=== PATIENT | female | born 1940 | race Two or more races ===

== ENCOUNTER 2017-11-15 12:02 | Emergency (ER) | payer OTHER ==
--- NOTE | 2017-11-15 12:15 | PDOC ---
History of Present Illness - General Chief Complaint: Seizure Stated Complaint: SEIZURE Time Seen by Provider: 11/15/17 12:14 - History of Present Illness Initial Comments: 11/15/17 12:41 The patient is a 77 year old female with a history of HTN, HLD, CAD, CVA, Seizures on Lamictal who presents for evaluation of a possible seizure. The patient is accompanied by family who assist in providing the history. They note that the patient missed her Lamictal dose yesterday evening but was able to take all her medications this morning. The patient was then complaining of a headache and noted pain along the right sided of her body lasting several minutes with the patient being alert the entire time. The patient's family member was concerned that the patient may have had a seizure and was hypertensive prompting their presentation to the ED for further evaluation. The patient is currently complaining of right arm pain with movement, but otherwise denies fevers, chills, headache, SOB, chest pain, nausea, vomiting, abdominal pain, numbness, tingling, weakness, or changes with urination or bowel movements. Past History - Past Medical History Allergies/Adverse Reactions: Allergies Allergy/AdvReac Type Severity Reaction Status Date / Time No Known Allergies Allergy Verified 11/15/17 12:18 Home Medications: Ambulatory Orders Acetaminophen [Tylenol .Extra-Strength -] 100 mg PO Q4H 02/03/16 Amlodipine Besylate 10 mg PO DAILY 02/03/16 Aspirin [ASA -] 81 mg PO DAILY 02/03/16 Cetirizine HCl 10 mg PO DAILY 02/03/16 Gabapentin 100 mg PO DAILY 02/03/16 Lamotrigine [Lamictal] 100 mg PO DAILY 02/03/16 Lisinopril 10 mg PO DAILY 02/03/16 Olopatadine HCl [Patanol] 5 ml OP BID 02/03/16 Oxybutynin Chloride 5 mg PO DAILY 02/03/16 Polyethylene Glycol 3350 [Gavilax] 17 gm PO DAILY 02/03/16 Pravastatin Sodium 10 mg PO DAILY 02/03/16 clonazePAM [Klonopin -] 0.5 mg PO DAILY 02/03/16 Cardiac Disorders: Yes CVA: Yes (X 3 (2014)) Disorders: Yes (frequency) HTN: Yes Hypercholesterolemia: Yes Seizures: Yes (11/2013) - Surgical History Appendectomy: Yes - Immunization History Immunization Up to Date: Yes - Suicide/Smoking/Psychosocial Hx Smoking History: Never smoked Have you smoked in the past 12 months: No Hx Alcohol Use: No Drug/Substance Use Hx: No Substance Use Type: None Hx Substance Use Treatment: No Review of Systems - Review of Systems Comments:: 11/15/17 12:45 Constitutional: No fevers, chills, fatigue, malaise HEENT: No Rhinorrhea, nasal congestion, visual changes Cardiovascular: No chest pain, syncope, palpitations, lightheadedness Respiratory: No Cough, SOB, Hemoptysis, Gastrointestinal: No Abdominal pain, Nausea, Vomiting, Constipation, Diarrhea, Melena Genitourinary: No Dysuria, Frequency, Urgency, Hesitancy, Hematuria, Flank pain Musculoskeletal: Right arm pain. No Myalgia, arthralgia Skin: No rashes, itching, bruising, pallor Neurologic: Headache. No Dizziness, Numbness, Weakness, or Tingling Psychiatric: No Hallucinations. No SI or HI *Physical Exam - Physical Exam Comments: 11/15/17 12:46 General Appearance: Nourished. No Apparent Distress HEENT: EOMI, DIANE. No Pharyngeal Erythema, Tonsillar Exudate, Tonsillar Erythema Neck: No Cervical Lymphadenopathy Respiratory/Chest: Lungs Clear, Normal Breath Sounds. No Crackles, Rales, Rhonchi, Wheezing Cardiovascular: Regular Rhythm, Regular Rate. 2/6 Systolic murmur noted on exam. No Gallops, Rubs Gastrointestinal/Abdominal: Normal Bowel Sounds, Soft. No Guarding, Rebound, Tenderness Musculoskeletal: No CVA Tenderness Extremity: Normal Capillary Refill Integumentary: Normal Color, Dry, Warm Neurologic: forming machine upkeep mechanic II-XII NML intact, Fully Oriented, Alert, Normal Mood/Affect, Normal Response, Motor Strength 5/5. Heart Score/ECG Review #1 ECG reviewed & interpreted by me at: 14:50 (1st Degree AV block) General ECG Interpretation: Sinus Rhythm, Normal Rate, No acute ischemic changes Compared to previous ECG there are: No significant change ED Treatment Course - LABORATORY CBC & Chemistry Diagram: 11/15/17 13:00 11/15/17 13:00 Medical Decision Making - Medical Decision Making 11/15/17 12:46 The patient is a 77 year old female with a history of HTN, HLD, CAD, CVA, Seizures on Lamictal who presents for evaluation of a possible seizure. Differential includes but is not limited to: ACS, Arthritis, CVA, Intracranial process, Infectious, Metabolic derangement. Given the patient's history we will obtain a cbc, cmp, troponin, ekg, chest plain film, and head ct to evaluate further for possible etiologies. The patient appears clinically well on exam. We will continue to monitor and reassess in the meantime. 11/15/17 14:23 CBC, cmp, troponin are unremarkable. Chest plain film is unremarkable as preliminarily read by ER physician. Head CT does not demonstrate any acute pathology as read by our radiologist. We are comfortable discharge the patient home with primary care provider follow up. We discussed the results plan and return precautions with the patient who voiced understanding and is agreeable with the plan. *DC/Admit/Observation/Transfer Diagnosis at time of Disposition: Seizure disorder - Discharge Dispostion Disposition: HOME Condition at time of disposition: Stable Decision to Admit order: No - Referrals - Patient Instructions Printed Discharge Instructions: DI for Seizure Disorder -- Adult Additional Instructions: Please return to the ER if you experience concerning or worsening symptoms including worsening chest pain, headache, or difficulty breathing. Your lab results, head CT, and chest xray were normal here in the ER. It is important that you call to schedule a follow up appointment with your primary care provider within 2-3 days to discuss your ER visit and further management of your symptoms. Por favor, regrese a la kandy de emergencias si experimenta problemas o empeoramiento de los sntomas, incluyendo el empeoramiento del dolor torcico, dolor de kasey o dificultad respiratoria. Los resultados del laboratorio, la tomografa craneal y la radiografa de trax fueron normales aqu en urgencias. Es importante que usted llame para programar quin keri de seguimiento con curiel proveedor de atencin primaria dentro de 2-3 burris para discutir curiel visita de urgencias y la administracin adicional de dana sntomas. Print Language: PORTUGUESE - Post Discharge Activity
[2017-11-15 12:18] VITALS: TEMP 97; BMI 28.3
[2017-11-15 13:11] LABS: BASO % 0.9 % (0-2.0); EOS % 1.9 % (0-4.5); HEMATOCRIT 38.2 % (32.4-45.2); HEMOGLOBIN 12.6 GM/dL (10.7-15.3); MCH 28.5 pg (25.7-33.7); MCHC 32.9 g/dl (32.0-36.0); MEAN CELL VOLUME 86.5 fl (80-96); MEAN PLT VOLUME 7.6 fl (7.5-11.1); MONO % 8.1 % (3.8-10.2); NEUT % 68.1 % (42.8-82.8); PLATELET COUNT 215 K/MM3 (134-434); RBC 4.42 M/mm3 (3.60-5.2); RDW 14.2 % (11.6-15.6); WHITE BLOOD COUNT 4.5 K/mm3 (4.0-10.0)
--- NOTE | 2017-11-15 13:24 | PDOC ---
Attending Attestation - Resident Resident Name: Migeul Cai - ED Attending Attestation I have performed the following: I have examined & evaluated the patient, The case was reviewed & discussed with the resident, I agree w/resident's findings & plan, Exceptions are as noted - HPI HPI: 11/15/17 13:18 The patient is a 77 year old female, with a significant past medical history of CVA(x3 in 2015), hypertension, hyperlipidemia, and seizures on lamictal, who presents to the emergency department with headache since this morning. Per family member, the patient missed her dose of blood pressure and seizure medications last night. Per family member, patient woke up with a headache. Family reports giving the patient 2 Tylenol for her symptoms with mild relief. However, family member states she was concerned that the headache could represent a stroke, so she brought her to the ED for further evaluation. Pt states that her headache has since resolved completely. Patient denies any fever , chills, cough, dizziness, or lightheadedness. She denies any chest pain, shortness of breath, diaphoresis, or palpitations. She denies any abdominal pain , nausea, vomiting, bowel/bladder incontinence. - Physicial Exam PE: 11/15/17 13:21 "GENERAL: Awake, alert, and fully oriented, in no acute distress. HEAD: No signs of trauma EYES: PERRLA, EOMI, sclera anicteric, conjunctiva clear ENT: Auricles normal inspection, hearing grossly normal, nares patent, oropharynx clear without exudates. Moist mucosa NECK: Nontender, no stepoffs, Normal ROM, supple, no lymphadenopathy, JVD, or masses LUNGS: Breath sounds equal, clear to auscultation bilaterally. No wheezes, and no crackles HEART: Regular rate and rhythm, normal S1 and S2, no murmurs, rubs or gallops ABDOMEN: Soft, nontender, normoactive bowel sounds. No guarding, no rebound. No masses EXTREMITIES: Normal range of motion, no edema. No clubbing or cyanosis. No cords, erythema, or tenderness NEUROLOGICAL: Cranial nerves II through XII intact. 5/5 strength and sensation in all extremities, Normal speech, normal gait, normal cerebellar function SKIN: Warm, Dry, normal turgor, no rashes or lesions noted. " - Medical Decision Making 11/15/17 13:21 77 F with headache, now resolved. Pt with no neuro deficits to suggest CVA. No witnessed seizure-like activity or post-ictal period to suggest seizure. - Labs - Head CT 11/15/17 14:[address] wnl, labs unremarkable. Pt reassessed - continues to feel well with no recurrence of headache. Repeat neuro exam at this time still non-focal. Pt is well appearing, with normal vitals. Clinically stable for DC at this time. I discussed the physical exam findings, ancillary test results and final diagnoses with the patient. I answered all of the patient's questions. The patient was satisfied with the care received and felt comfortable with the discharge plan and treatment plan. The patient agrees to follow up with the primary care physician within 24-72 hours. <Vance Sawant - Last Filed: 11/15/17 14:26> - Medical Decision Making 11/15/17 15:17 Documentation prepared by Andrea Castillo, acting as electromedical equipment technician for Vance Sawant MD. <Andrea Castillo - Last Filed: 11/15/17 15:17> ED Treatment Course - LABORATORY CBC & Chemistry Diagram: 11/15/17 13:00 11/15/17 13:00 - ADDITIONAL ORDERS Additional order review: Laboratory Results 11/15/17 13:00 Sodium 134 L Potassium 4.4 Chloride 99 Carbon Dioxide 29 Anion Gap 6 L BUN 15 Creatinine 0.5 L Creat Clearance w eGFR > 60 Random Glucose 101 Calcium 9.1 Total Bilirubin 0.2 D AST 23 ALT 24 Alkaline Phosphatase 86 Creatine Kinase 207 H Creatine Kinase Index 2.3 CK-MB (CK-2) 4.96 H Troponin I < 0.02 Total Protein 6.9 Albumin 3.7 11/15/17 13:00 RBC 4.42 MCV 86.5 MCHC 32.9 RDW 14.2 MPV 7.6 Neutrophils % 68.1 D Lymphocytes % 21.0 D Monocytes % 8.1 Eosinophils % 1.9 Basophils % 0.9 - RADIOLOGY Radiograph Interpretation: 11/15/17 15:16 EXAM: Head CT INTERPRETED BY: Dr. Weaver REVIEWED BY: Dr. Sawant IMPRESSION: See discussion above. No significant interval change or acute intracranial pathology is identified. <Andrea Castillo - Last Filed: 11/15/17 15:17>
[2017-11-15 13:38] LABS: ALBUMIN 3.7 g/dl (3.4-5.0); ANION GAP 6 (8-16); BILIRUBIN,TOTAL 0.2 mg/dL (0.2-1.0); BLOOD UREA NITROGEN 15 mg/dL (7-18); CALCIUM 9.1 mg/dL (8.5-10.1); CHLORIDE 99 mmol/L (98-107); CO2 29 mmol/L (21-32); CREATININE 0.5 mg/dL (0.55-1.02); GLUCOSE,RANDOM 101 mg/dL (74-106); POTASSIUM 4.4 mmol/L (3.5-5.1); SGOT/AST 23 U/L (15-37); SGPT/ALT 24 U/L (12-78); SODIUM 134 mmol/L (136-145); TOT PROT 6.9 g/dl (6.4-8.2)
[2017-11-15 13:40] LABS: ALK PHOS 86 U/L (45-117)
[2017-11-15 15:16] VITALS: BP 124/71; PULSE 75
--- NOTE | 2017-11-16 08:53 | EKG ---
Test Reason : Blood Pressure : / mmHG Vent. Rate : 071 BPM Atrial Rate : 071 BPM P-R Int : 210 ms QRS Dur : 086 ms QT Int : 458 ms P-R-T Axes : 075 -07 003 degrees QTc Int : 497 ms POOR DATA QUALITY, INTERPRETATION MAY BE ADVERSELY AFFECTED SINUS RHYTHM WITH 1ST DEGREE A-V BLOCK NONSPECIFIC T WAVE ABNORMALITY ABNORMAL ECG WHEN COMPARED WITH ECG OF 03-FEB-2016 11:40, NONSPECIFIC T WAVE ABNORMALITY, WORSE IN ANTEROLATERAL LEADS Confirmed by ABEBE HENRY, HUMZA ([id number]) on 11/16/2017 8:53:25 AM Referred By: Confirmed By:HUMZA LOMAS MD
== END 2017-11-15 15:13 | disposition home or self-care (01) ==
LOC: JER 12:02
DX: G40.909 Epilepsy, unspecified, not intractable, without status epilepticus (principal); I10 Essential (primary) hypertension; E78.5 Hyperlipidemia, unspecified; I25.10 Atherosclerotic heart disease of native coronary artery without angina pectoris
CPT/HCPCS: 36415; 70450-TC; 71046-TC-FY; 80053; 82550; 82553; 84484; 85025; 93005; 93010; 99282-25

== ENCOUNTER 2018-11-16 12:44 | Inpatient (IN) | payer OTHER ==
[2018-11-16] MEDS ORDERED: ATROPINE SULFATE 1 MG/10 ML DISP.SYRIN ONE (12:57)
--- NOTE | 2018-11-16 13:04 | PDOC ---
History of Present Illness - General Chief Complaint: Lightheaded Stated Complaint: DIZZINESS Time Seen by Provider: 11/16/18 13:04 History Source: Patient Exam Limitations: No Limitations - History of Present Illness Initial Comments: 11/16/18 13:07 78 year old woman with a history of HTN, HLD, CAD, CVA, Seizures on Lamictal who presents with episode of unsteadiness on her feet occurring at 1030 this morning when she was standing up from a seated position and she began to rotate and speak slowly, the patient continued to do this even after sitting down and the aid called EMS. Aid denies patient shaking or having seizure like symptoms. Per EMS blood sugar in the 130s, HR 35. 3 of atropine given en route with improvment to 40s. The patient's daughter at bedside notes that this has happened before during medication changes The patient just started coreg and discontinued bystolic 2 days ago. She was seen in the ED 1 day ago for break through seizure. Patient provides limited history 2/2 lethargy daughter: Ana [phone] sister: Raeann tPA Exclusion checklist 3-4.5h - Time Elapsed Date last known well: 11/16/18 Time last known well: 10:30 Elaspsed time: Day(s) and 5 Hour(s) and 45 Minutes - Thrombolytic Therapy Candidate Is patient eligible for thrombolytic therapy: Yes - Exclusion Criteria 3-4.5 hr SBP greater than 185 or DBP greater than 110mmHg despite tx: No Recent IC/spinal surgery,head trauma or stroke<3mos.: No Hx IC hemorrhage, IC neoplasm, AV malformation or aneurysm: No Active internal bleeding: No Blding diathesis(low plt ct, inc PTT,INR>1.7 or use of NOAC): No Symptoms suggest subarachnoid hemorrhage: No CT demonstrates multilobar infarct(>1/3 cerebral hemiphere): No Arterial puncture at noncompressible site in previous 7 days: No Blood glucose concentration less than 50mg/dL (2.7mmol/L): No - Relative Exclusion Criteria 3-4.5 hr Life expectancy <1 yr or severe co-morbid illness: No : No Patient/family refused: No Rapid improvement: No Stroke severity too mild: Yes Recent acute MS (w/in previous 3 months): No Seizure at onset with postictal residual neuro impairments: No Major surgery or serious trauma w/in previous 14 days: No Recent GI or hemorrhage (w/in previous 21 days): No - Add'l Relative Exclusion 3-4.5 hr Age > 80: No Hx of both diabetes AND prior ischemic stroke: No Taking an oral anticoagulant regardless of INR: Yes NIHSS >25: No - Ineligibility reason(s) Reasons No tPA given: See reason(s) noted above (Patient showed rapid improvement with transvenous pacing) NIH Stroke Scale - Last Known Well Date/Time & Onset Date Last Known Well: 11/16/18 Time Last Known Well: 10:30 - Initial Evaluation Level of consciousness: Alert Ask patient the month and their age: Answers both correctly Ask patient to open & close eyes; make fist and let go: Obeys both correctly Best gaze (horizontal eye movement): Normal Visual field testing: No visual field loss Facial paresis (Show teeth/raise eyebrows/close eyes tight): Normal symmetrical movement Motor Function: Left Arm: Normal Motor Function: Right Arm: Normal (extends arm 90 (or 45) degrees for 10 seconds without drift Motor Function: Left Leg: Normal (extends leg 30 degrees for 5 seconds without drift) Motor Function: Right Leg: Normal (extends leg 30 degrees for 5 seconds without drift) Limb Ataxia: No ataxia Sensory(Use pinprick test arms,legs,trunk,face/side to side): Normal Best language (Describe picture, name items, read sentences): No Aphasia Dysarthria (read several words): Mild to moderate slurring of words Extinction and Inattention: No abnormality - Total Score NIH Stroke Scale Score: 1 Past History - Past Medical History Allergies/Adverse Reactions: Allergies Allergy/AdvReac Type Severity Reaction Status Date / Time No Known Allergies Allergy Verified 11/15/17 12:18 Home Medications: Ambulatory Orders Acetaminophen [Tylenol .Extra-Strength -] 100 mg PO Q4H 02/03/16 Amlodipine Besylate 10 mg PO DAILY 02/03/16 Aspirin [ASA -] 81 mg PO DAILY 02/03/16 Cetirizine HCl 10 mg PO DAILY 02/03/16 Gabapentin 100 mg PO DAILY 02/03/16 Lamotrigine [Lamictal] 100 mg PO DAILY 02/03/16 Lisinopril 10 mg PO DAILY 02/03/16 Olopatadine HCl [Patanol] 5 ml OP BID 02/03/16 Oxybutynin Chloride 5 mg PO DAILY 02/03/16 Polyethylene Glycol 3350 [Gavilax] 17 gm PO DAILY 02/03/16 Pravastatin Sodium 10 mg PO DAILY 02/03/16 clonazePAM [Klonopin -] 0.5 mg PO DAILY 02/03/16 Cardiac Disorders: Yes CVA: Yes (X 3 (2014)) COPD: No Disorders: Yes (frequency) HTN: Yes Hypercholesterolemia: Yes Seizures: Yes (11/2013) - Surgical History Appendectomy: Yes - Immunization History Immunization Up to Date: Yes - Suicide/Smoking/Psychosocial Hx Smoking History: Unknown if ever smoked Have you smoked in the past 12 months: No Information on smoking cessation initiated: No Hx Alcohol Use: No Drug/Substance Use Hx: No Substance Use Type: None Hx Substance Use Treatment: No Review of Systems - Review of Systems Able to Perform ROS?: No (limited 2/2 lethargy) Comments:: 11/16/18 16:00 + only admits to some lower abdominal pain *Physical Exam - Vital Signs Last Vital Signs Temp Pulse Resp BP Pulse Ox 98.0 F 42 L 16 125/58 L 100 11/16/18 12:50 11/16/18 12:50 11/16/18 12:50 11/16/18 12:50 11/16/18 12:50 - Physical Exam Comments: 11/16/18 16:02 GENERAL: lethargic and dysarthric in speech HEAD: No signs of trauma, normocephalic, atraumatic EYES: PERRLA, EOMI, sclera anicteric, conjunctiva clear ENT: oropharynx clear without exudates. Moist mucosa NECK: Normal ROM, supple LUNGS: No distress, speaks full sentences, clear to auscultation bilaterally HEART: Regular rate and rhythm, normal S1 and S2, no murmurs, rubs or gallops, peripheral pulses normal and equal bilaterally. ABDOMEN: Soft, + mild suprapubic tenderness, normoactive bowel sounds. No guarding, no rebound. No masses EXTREMITIES : Normal inspection, Normal range of motion, no edema. No clubbing or cyanosis. NEUROLOGICAL: lethargic SKIN: Warm, Dry, normal turgor, no rashes or lesions noted ED Treatment Course - LABORATORY CBC & Chemistry Diagram: 11/16/18 13:15 11/16/18 13:15 Medical Decision Making - Medical Decision Making 11/16/18 14:23 78 year old woman with a history of HTN, HLD, CAD, CVA, Seizures on Lamictal who prsents with symptomatic bradycardia s/p recent medication change. ED Course: consider beta blockade vs sick sinus syndrome vs AV block 11/16/18 14:24 EKG: junctional rhythm rte of 41bpm, no ST elevations glucagon dosed without effect Patient transcutaneously paced: 10mA / 70bpm slight improvmenet in mentation 11/16/18 15:57 Patient showing improvement with mentation and alertness with tranvenous pacing Refer to attending notes regarding consult with neurology, cardiology and PCP. In short the tpa is not indicated and it is unclear the etiology of pt's symptomatic bradycardia per discussion with cardiology as patient was not reversed with glucagon and atropine less likely to be due to medication overdose Dr. Heller was informed of patient's visit Patient's neurologist at [facility] was informed of patient's visit 11/16/18 16:07 Report was given to ICU resident Dr. Sher VASQUEZ Inpatient team TELEGRAPHIC SERVICE DISPATCHER Ace Jimenes received report. Patient to be taken to ICU 11/16/18 16:15 *DC/Admit/Observation/Transfer Diagnosis at time of Disposition: Symptomatic bradycardia - Discharge Dispostion Decision to Admit order: Yes - Referrals - Patient Instructions - Post Discharge Activity
--- NOTE | 2018-11-16 13:05 | PDOC ---
History of Present Illness - General Chief Complaint: Lightheaded Stated Complaint: DIZZINESS Time Seen by Provider: 11/16/18 13:04 Past History - Past Medical History Allergies/Adverse Reactions: Allergies Allergy/AdvReac Type Severity Reaction Status Date / Time No Known Allergies Allergy Verified 11/15/17 12:18 Home Medications: Ambulatory Orders Acetaminophen [Tylenol .Extra-Strength -] 100 mg PO Q4H 02/03/16 Amlodipine Besylate 10 mg PO DAILY 02/03/16 Aspirin [ASA -] 81 mg PO DAILY 02/03/16 Cetirizine HCl 10 mg PO DAILY 02/03/16 Gabapentin 100 mg PO DAILY 02/03/16 Lamotrigine [Lamictal] 100 mg PO DAILY 02/03/16 Lisinopril 10 mg PO DAILY 02/03/16 Olopatadine HCl [Patanol] 5 ml OP BID 02/03/16 Oxybutynin Chloride 5 mg PO DAILY 02/03/16 Polyethylene Glycol 3350 [Gavilax] 17 gm PO DAILY 02/03/16 Pravastatin Sodium 10 mg PO DAILY 02/03/16 clonazePAM [Klonopin -] 0.5 mg PO DAILY 02/03/16 Cardiac Disorders: Yes CVA: Yes (X 3 (2014)) COPD: No Disorders: Yes (frequency) HTN: Yes Hypercholesterolemia: Yes Seizures: Yes (11/2013) - Surgical History Appendectomy: Yes - Immunization History Immunization Up to Date: Yes - Suicide/Smoking/Psychosocial Hx Smoking History: Unknown if ever smoked Have you smoked in the past 12 months: No Information on smoking cessation initiated: No Hx Alcohol Use: No Drug/Substance Use Hx: No Substance Use Type: None Hx Substance Use Treatment: No *Physical Exam - Vital Signs Last Vital Signs Temp Pulse Resp BP Pulse Ox 98.0 F 42 L 16 125/58 L 100 11/16/18 12:50 11/16/18 12:50 11/16/18 12:50 11/16/18 12:50 11/16/18 12:50
[2018-11-16 13:45] LABS: BASO % 0.9 % (0-2.0); EOS % 1.9 % (0-4.5); HEMATOCRIT 34.1 % (32.4-45.2); LYMPH % 31.2 % (8-40); MCH 28.7 pg (25.7-33.7); MCHC 32.4 g/dl (32.0-36.0); MEAN CELL VOLUME 88.6 fl (80-96); MEAN PLT VOLUME 8.4 fl (7.5-11.1); MONO % 10.7 % (3.8-10.2); NEUT % 55.3 % (42.8-82.8); PLATELET COUNT 180 K/MM3 (134-434); RBC 3.85 M/mm3 (3.60-5.2); RDW 13.9 % (11.6-15.6)
[2018-11-16] MEDS ORDERED: ONDANSETRON 4 MG/2 ML VIAL IVPUSH ONE (13:48)
[2018-11-16] MEDS ORDERED: SODIUM CHLORIDE 0.9% 1000 ML INFUS.BAG IV ONE (13:49)
[2018-11-16] MEDS ORDERED: GLUCAGON 1 MG KIT IVPUSH ONE (13:49)
[2018-11-16 13:59] LABS: ALBUMIN 3.2 g/dl (3.4-5.0); ALK PHOS 73 U/L (45-117); ANION GAP 7 MMOL/L (8-16); BILIRUBIN,TOTAL 0.2 mg/dL (0.2-1); BLOOD UREA NITROGEN 22 mg/dL (7-18); CHLORIDE 100 mmol/L (98-107); CO2 24 mmol/L (21-32); CREATININE 0.7 mg/dL (0.55-1.3); GLUCOSE,RANDOM 109 mg/dL (74-106); POTASSIUM 4.4 mmol/L (3.5-5.1); SGOT/AST 21 U/L (15-37); SGPT/ALT 19 U/L (13-61); SODIUM 131 mmol/L (136-145); TOT PROT 5.9 g/dl (6.4-8.2)
[2018-11-16] MEDS ORDERED: GlUCAGON HUMAN RECOMBINANT 1 MG/VIAL ONE ×3 (13:59→23:53)
[2018-11-16] MEDS ORDERED: ONDANSETRON 4 MG/2 ML VIAL ONE (14:00)
[2018-11-16 14:05] LABS: INR 0.95 (0.83-1.09); PROTHROMBIN TIME (PATIENT) 11.2 SEC (9.7-13.0)
[2018-11-16 14:07] LABS: ACTIVATED PTT 27.3 SECONDS (25.2-36.5)
--- NOTE | 2018-11-16 14:13 | EKG ---
Test Reason : Blood Pressure : / mmHG Vent. Rate : 041 BPM Atrial Rate : 045 BPM P-R Int : 000 ms QRS Dur : 092 ms QT Int : 550 ms P-R-T Axes : 000 025 013 degrees QTc Int : 453 ms JUNCTIONAL BRADYCARDIA ABNORMAL ECG WHEN COMPARED WITH ECG OF 15-NOV-2017 14:47, JUNCTIONAL RHYTHM HAS REPLACED SINUS RHYTHM VENT. RATE HAS DECREASED BY 30 BPM NONSPECIFIC T WAVE ABNORMALITY NO LONGER EVIDENT IN ANTEROLATERAL LEADS Confirmed by MD Frankie, Miguel ([id number]) on 11/16/2018 2:13:19 PM Referred By: Confirmed By:Miguel David MD
--- NOTE | 2018-11-16 14:20 | PDOC ---
Documentation entered by Alivia Berg SCRIBE, acting as scribe for Brenda Baron DO. Brenda Baron DO: This documentation has been prepared by the [email or web address], Alivia Berg SCRIBE, under my direction and personally reviewed by me in its entirety. I confirm that the documentation accurately reflects all work, treatment, procedures, and medical decision making performed by me. Attending Attestation - Resident Resident Name: Linette Martin - ED Attending Attestation I have performed the following: I have examined & evaluated the patient, The case was reviewed & discussed with the resident, I agree w/resident's findings & plan, Exceptions are as noted - HPI HPI: 11/16/18 15:59 The patient is a 78-year-old female, with a past medical history of HTN, HLD, CAD, CVA, seizures (on Lamictal), who presents to the ED s/p an episode of dizziness/lightheaded/weakness at 10:30 AM this morning. Aide is at bedside and states that the patient was standing from a seated position when she began to sway from side to side and speak slowly. BS was noted to be in the 130s. - Physicial Exam PE: 11/16/18 16:03 GENERAL: (+)Arousable to verbal stimuli, lethargic, general weakness in all extremities. HEAD: No signs of trauma EYES: PERRLA, EOMI, sclera anicteric, conjunctiva clear ENT: Auricles normal inspection, hearing grossly normal, nares patent, oropharynx clear without exudates. Moist mucosa NECK: Normal ROM, supple, no lymphadenopathy, JVD, or masses LUNGS: Breath sounds equal, clear to auscultation bilaterally. No wheezes, and no crackles HEART: (+)Bradycardic. Normal S1 and S2, no murmurs, rubs or gallops ABDOMEN: Soft, nontender, normoactive bowel sounds. No guarding, no rebound. 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 No edema. No clubbing or cyanosis. No cords, erythema, or tenderness NEUROLOGICAL: (+)Ataxic [id number] test. SKIN: Warm, Dry, normal turgor, no rashes or lesions noted - Critical Care Time Total Critical Care Time: 60 Critical Care Statement: The care of this patient involved high complexity decision making to prevent further life threatening deterioration of the patient 's condition and/or to evaluate & treat vital organ system(s) failure or risk of failure. - Medical Decision Making 11/16/18 14:00 I, Dr. Brenda Baron, DO, attest that this document has been prepared under my direction and personally reviewed by me in its entirety. I further attest, that it accurately reflects all work, treatment, procedures and medical decision -making performed by me. 11/16/18 14:00 a/p: 78yo female biba from home after an episode of dizziness/lightheaded/ weakness, swaying at home -pt was willow to 30s per medics -given atropine 3mg iv per medics bell captain -pt arrives with HR 40s, normal bp -pt lethargic, ataxic with both sides L and R with finger to nose -code daniel called, onset at 1030 -pt arrives lethargic, responsive to verbal and tactile stimuli -will send for stat head ct, labs, ekg, cxr -zoll pads placed on the patient 11/16/18 14:[address] Ross, no tpa at this time will see in consult, requests MRI brain without call placed to Dr. medrano from cards for consult pt paced at this time - improved ms, more awake, paced externally through zoll pads to HR 70 11/16/18 14:19 daughter at the bedside, new meds - cardiac meds, already given glucagon for poss betal isabella affect causing bradycardia without improvement in HR unsure exactly what the patient is taking med lawrence at home hx of seizures, on lamictal, no seizure activity today 11/16/18 14:27 call placed to the ICU resident call placed to Dr. Heller pt now being paced, more awake 11/16/18 14:34 case discussed with Sher, ICU resident who accepts pt to service 11/16/18 14:35 case discussed with PMD Dr. Heller who states Dr. Johansen is coveringAce banker mason for the group 11/16/18 15:[address] Medrano who will see the patient in consult, agrees with current plan 11/16/18 15:47 case discussed with Ace Jimenes who accepts pt to service
--- NOTE | 2018-11-16 14:54 | CONSULT ---
Consult Consult Specialty:: Pulm/CCM Referred by:: Dr. Baron Reason for Consultation:: symptomatic bradycardia - History of Present Illness History of Present Illness: 75 yo F h/o CVA w/ residual cognitive dysfunction, HTN, HLD, seizure disorder admitted to the hospital for dizziness, weakness, AMS, and bradycardia. Her HR was in the 30s en route to ED and 3 atropines were given without improvement. Daughter at bedside stated patient has an aid who helps her with daily activities. Patient started coreg 12.5 daily and amlodipine-valsartan 5-320mg daily since 11/14. The daughter prepares her medications and she thinks patient might have overdosed on coreg. In the ED, zoll pads are placed on the patient and her HR is in the low 40s, with improvement on mentation. Neurology requested MRI without contrast. 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) History of Recent Travel: No Home Medications - Allergies Allergies/Adverse Reactions: Allergies Allergy/AdvReac Type Severity Reaction Status Date / Time No Known Allergies Allergy Verified 11/15/17 12:18 - Home Medications Home Medications: Ambulatory Orders Acetaminophen [Tylenol .Extra-Strength -] 100 mg PO Q4H 02/03/16 Amlodipine Besylate 10 mg PO DAILY 02/03/16 Aspirin [ASA -] 81 mg PO DAILY 02/03/16 Cetirizine HCl 10 mg PO DAILY 02/03/16 Gabapentin 100 mg PO DAILY 02/03/16 Lamotrigine [Lamictal] 100 mg PO DAILY 02/03/16 Lisinopril 10 mg PO DAILY 02/03/16 Olopatadine HCl [Patanol] 5 ml OP BID 02/03/16 Oxybutynin Chloride 5 mg PO DAILY 02/03/16 Polyethylene Glycol 3350 [Gavilax] 17 gm PO DAILY 02/03/16 Pravastatin Sodium 10 mg PO DAILY 02/03/16 clonazePAM [Klonopin -] 0.5 mg PO DAILY 02/03/16 Family Disease History - Family Disease History Family Disease History: Heart Disease: Mother (PPM), Other: Mother, Sister (HTN) Review of Systems Unable to obtain ROS, reason: confused Physical Exam Vital Signs: Vital Signs Temperature 98.0 F 11/16/18 12:50 Pulse Rate 42 L 11/16/18 12:50 Respiratory Rate 16 11/16/18 12:50 Blood Pressure 125/58 L 11/16/18 12:50 O2 Sat by Pulse Oximetry (%) 100 11/16/18 12:50 Constitutional: Yes: No Distress, Calm, Obese Cardiovascular: Yes: Bradycardia, Murmur, S1, S2 Respiratory: Yes: CTA Bilaterally Gastrointestinal: Yes: Normal Bowel Sounds, Soft Edema: No Neurological: Yes: Alert, Confusion, Unsteady Gait. No: Oriented Labs: CBC, BMP 11/16/18 13:15 11/16/18 13:15 Imaging - Results X-ray: Report Reviewed, Image Reviewed Cat Scan: Report Reviewed, Image Reviewed Assessment/Plan 75 yo F h/o CVA w/ residual cognitive dysfunction, HTN, HLD, seizure disorder BIBEMS to the hospital for dizziness, weakness, AMS, and bradycardia. Patient is admitted to the ICU for symptomatic bradycardia on external pacer. CV: 1. symptomatic bradycardia maybe 2/2 coreg OD 2. HTN - normal QRS, FL, troponins, and BPs; no sign of heart block. received 1mg of glucagon in ED, will give 1 more dose of glucagon 5mg IVP, if effect seen, start glucagon gtt - hold anti-bp meds for now - cardiology consult Neuro: 1. altered mental status 2. seizure disorder - stroke vs. non-convulsive seizure vs. toxic metabolic encephalopathy vs. NPH vs. bradycardia * repeat MRI w/o contrast per neurology * UA r/o infection - keppra level, resume home AEDs Prophylaxis 1. DVT: heparin sq 2. GI: not indicated Dispo: cont. to monitor in ICU Sher Mata PGY3 ICU resident Visit type - Emergency Visit Emergency Visit: Yes Care time: The patient presented to the Emergency Department on the above date and was hospitalized for further evaluation of their emergent condition. - New Patient This patient is new to me today: Yes Date on this admission: 11/16/18 - Critical Care Critical Care patient: Yes Total Critical Care Time (in minutes): 35 Critical Care Statement: The care of this patient involved high complexity decision making to prevent further life threatening deterioration of the patient 's condition and/or to evaluate & treat vital organ system(s) failure or risk of failure.
[2018-11-16] MEDS ORDERED: PROMETHAZINE HCL 25 MG/1 ML VIAL IM PRN (15:26)
[2018-11-16] MEDS ORDERED: SODIUM CHLORIDE 1,000 ML IV SCH (15:30)
--- NOTE | 2018-11-16 17:08 | HP ---
Admitting History and Physical - Primary Care Physician PCP: Lety Heller I - Admission Chief Complaint: Dizziness, bradycardia History of Present Illness: Patient is a 78 y/o female with past medical history of CVA with residual cognitive dysfunction, HTN, HLD, seizure disorder. As per patient daughter patient experienced a seizure yesterday morning but returned to usual state of health afterwards. Today patient stood up from chair and began to feel dizzy. SOUP MIXER called EMS and she was noted to be bradycardic with HR in 30s. Received Atropine x 3 doses in field with no effect. When arrive to ER HR 30s and she was paced which showed mild improvement with HR in low 40s. Patient was started on Coreg recently by PMD. On examination patient is confused and is poor informant. History taken from patient daughter. 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) History of Recent Travel: No Home Medications - Allergies Allergies/Adverse Reactions: Allergies Allergy/AdvReac Type Severity Reaction Status Date / Time No Known Allergies Allergy Verified 11/15/17 12:18 - Home Medications Home Medications: Ambulatory Orders Amlodipine Besylate/Valsartan [Amlodipine-Valsartan 5-320 mg] 1 each PO DAILY Calcitrate 950 mg PO DAILY 11/16/18 Carvedilol 12.5 mg PO BID 11/16/18 Cetirizine HCl [Zyrtec -] 10 mg PO DAILY 11/16/18 Gabapentin 100 mg PO HS 11/16/18 Klonopin 0.5 mg PO DAILY 11/16/18 Lamotrigine 150 mg PO DAILY 11/16/18 Lamotrigine [Lamictal Xr] 250 mg PO HS 11/16/18 Family Disease History - Family Disease History Family Disease History: Heart Disease: Mother (PPM), Other: Mother, Sister (HTN) Review of Systems Unable to obtain ROS, reason: mental status Physical Examination Vital Signs: Vital Signs Temperature 98.0 F 11/16/18 15:26 Pulse Rate 70 11/16/18 15:09 Respiratory Rate 16 11/16/18 15:09 Blood Pressure 131/70 11/16/18 15:09 O2 Sat by Pulse Oximetry (%) 98 11/16/18 15:09 Constitutional: Yes: Well Nourished, Mild Distress Eyes: Yes: Conjunctiva Clear HENT: Yes: Atraumatic Neck: Yes: Supple Cardiovascular: Yes: Bradycardia Respiratory: Yes: Regular, CTA Bilaterally Gastrointestinal: Yes: Normal Bowel Sounds, Soft Musculoskeletal: Yes: Muscle Weakness Extremities: Yes: WNL Edema: No Neurological: Yes: Alert, Confusion Psychiatric: Yes: Alert Labs: CBC, BMP 11/16/18 13:15 11/16/18 13:15 Imaging - Results Chest X-ray: Report Reviewed Cat Scan: Report Reviewed EKG: Report Reviewed Problem List - Problems (1) Bradycardia Assessment/Plan: -ICU -tele monitoring -Dopamine drip -will hold Coreg -EKG shows junctional bradycardia -cardiology consult Code(s): R00.1 - BRADYCARDIA, UNSPECIFIED (2) Hyperlipemia Code(s): E78.5 - HYPERLIPIDEMIA, UNSPECIFIED (3) Hypertension Assessment/Plan: -Amlodipine, Diovan on hold -low Na diet Code(s): I10 - ESSENTIAL (PRIMARY) HYPERTENSION (4) Seizure Assessment/Plan: -Continue lamictal -Head CT scan reviewed -pending Brain MRI -seizure precautions -neuro checks Code(s): R56.9 - UNSPECIFIED CONVULSIONS Assessment/Plan see problem list dvt ppx
[2018-11-16] MEDS ORDERED: DOPAMINE 400 MG/D5W - 400,000 MCG/250 ML INFUS.BAG IVPB SCH (17:15)
[2018-11-16] MEDS ORDERED: GlUCAGON HUMAN RECOMBINANT 1 MG/VIAL IVPUSH ONE (18:05)
[2018-11-16 18:48] VITALS: BMI 26.5
[2018-11-16 18:52] VITALS: TEMP 98.6
[2018-11-16] MEDS ORDERED: GABAPENTIN 100 MG CAPSULE (FP) PO SCH (22:00)
[2018-11-16] MEDS ORDERED: CHLORHEXIDINE GLUCONATE 4% CLEANSER FOR DECOLONIZATION TP SCH (22:00)
[2018-11-16] MEDS ORDERED: HEPARIN NA (PORCINE) 5,000 UNITS/ML 1ML VIAL SQ SCH (22:00)
[2018-11-16] MEDS ORDERED: MUPIROCIN 2% TOPICAL OINTMENT FOR DECOLONIZATION NS SCH (22:00)
[2018-11-16 23:04] VITALS: BP 158/51
[2018-11-16] MEDS ORDERED: PT OWN MED DRAWER 7, Y5N ONE (23:15)
[2018-11-16 23:26] VITALS: PULSE 40
[2018-11-16] MEDS: ATORVASTATIN CA 40 MG TABLET (FP) PO SCH ×2 (23:26→23:37)
[2018-11-16] MEDS ORDERED: lamoTRIgine 100 MG TABLET (FP) PO SCH (23:30)
--- NOTE | 2018-11-16 23:46 | PN ---
Progress Note, Physician - Current Medication List Current Medications: Active Medications Atorvastatin Calcium (Lipitor -) 40 mg PO HS [facility] Last Admin: 11/16/18 23:37 Dose: Not Given Chlorhexidine Gluconate (Hibiclens For Decolonization -) 1 applic TP HS [facility] Clonazepam (Klonopin -) 0.5 mg PO DAILY [facility] Gabapentin (Neurontin -) 100 mg PO HS [facility] Last Admin: 11/16/18 23:26 Dose: 100 mg Glucagon (Glucagon -) 5 mg IVPUSH ONCE ONE Stop: 11/16/18 23:41 Heparin Sodium (Porcine) (Heparin -) 5,000 unit SQ TID [facility] Last Admin: 11/16/18 23:26 Dose: 5,000 unit Sodium Chloride (Normal Saline -) 1,000 mls @ 75 mls/hr IV ASDIR [facility] Last Admin: 11/16/18 15:55 Dose: 75 mls/hr Dopamine HCl/Dextrose (Dopamine 400 Mg/D5w -) 400,000 mcg in 250 mls @ 15.139 mls/hr IVPB TITR [facility]; Protocol Last Admin: 11/16/18 23:25 Dose: 10 mcg/kg/min, 30.277 mls/hr Lamotrigine (Lamictal -) 100 mg PO DAILY [facility] Lamotrigine (Lamictal -) 200 mg PO [facility] Last Admin: 11/16/18 23:38 Dose: 200 mg Mupirocin (Bactroban Ointment (For Decolonization) -) 1 applic NS BID [facility] Stop: 11/21/18 21:59 Promethazine HCl (Phenergan Injection -) 25 mg IM Q4H PRN PRN Reason: NAUSEA AND/OR VOMITING - Objective Vital Signs: Vital Signs Temperature 98.6 F 11/16/18 17:26 Pulse Rate 40 L 11/16/18 23:25 Respiratory Rate 16 11/16/18 23:03 Blood Pressure 158/51 L 11/16/18 23:25 O2 Sat by Pulse Oximetry (%) 98 11/16/18 15:09 Labs: CBC, BMP 11/16/18 13:15 11/16/18 13:15 INR, PTT INR 0.95 (0.83-1.09) 11/16/18 13:15 Assessment/Plan pt transferred to [facility] per family request she is on Dopamin 10 mcg/min , and glucagon 5 IVPUSH was given before she left HR 60 , BP 158/51 she has improved she got here she put out 3000 urine in 2 hours family signed the transfer consent spoken with the visitor service assistant at [facility] who recommended Glucagon before she leave
[2018-11-17] MEDS ORDERED: GlUCAGON HUMAN RECOMBINANT 1 MG/VIAL IVPUSH ONE
[2018-11-17 00:21] LABS: URINE APPEARANCE CLEAR; URINE BILIRUBIN NEGATIVE (NEGATIVE); URINE COLOR YELLOW; URINE GLUCOSE (UA) NEGATIVE (NEGATIVE); URINE KETONE NEGATIVE (NEGATIVE); URINE LEUK ESTERASE NEGATIVE (NEGATIVE); URINE NITRITE NEGATIVE (NEGATIVE); URINE PROTEIN NEGATIVE (NEGATIVE); URINE UROBILINOGEN 0.2 mg/dL (0.2-1.0)
[2018-11-17 00:44] LABS: COCAINE, UR NEGATIVE ng/ml (CUTOFF=300); METHADONE, UR NEGATIVE ng/ml (CUTOFF=300); OPIATES, URI NEGATIVE ng/ml (CUTOFF=300); PHENCYCLIDINE,URINE NEGATIVE ng/ml (CUTOFF=25); URINE AMPHETAMINES NEGATIVE ng/ml (CUTOFF=500); URINE BARBITURATES NEGATIVE ng/ml (CUTOFF=200); URINE BENZODIAZEPINES NEGATIVE ng/ml (CUTOFF=200)
[2018-11-17] MEDS ORDERED: clonazePAM 0.5 MG TABLET PO SCH (10:00)
[2018-11-17] MEDS ORDERED: VALSARTAN 160 MG TABLET (UD) PO SCH (10:00)
[2018-11-17] MEDS ORDERED: amLODIPine BESYLATE 5 MG TABLET (FP) PO SCH (10:00)
[2018-11-17] MEDS ORDERED: lamoTRIgine 100 MG TABLET (FP) PO SCH ×2 (10:00)
--- NOTE | 2018-11-17 15:08 | EKG ---
Test Reason : Blood Pressure : / mmHG Vent. Rate : 039 BPM Atrial Rate : 041 BPM P-R Int : 000 ms QRS Dur : 092 ms QT Int : 500 ms P-R-T Axes : 000 021 011 degrees QTc Int : 402 ms LIKELY SINUS BRADYCARDIA WITH ARRHYTHMIA NONSPECIFIC ST ABNORMALITY ABNORMAL ECG WHEN COMPARED WITH ECG OF 16-NOV-2018 19:18, POSSBILE RHYTHM CHANGE VENT. RATE HAS DECREASED Confirmed by TAM LOZANO MD ([id number]) on 11/17/2018 3:08:17 PM Referred By: Confirmed By:TAM LOZANO MD
== END 2018-11-17 00:30 | disposition short-term general hospital (02) | DRG 918 ==
LOC: JER 12:44 → JERBED 15:10 → JICU 17:31
PROVIDERS: ADMIT Family Medicine; ATTEND Family Medicine
DX: T44.7X1A Poisoning by beta-adrenoreceptor antagonists, accidental (unintentional), initial encounter (principal); R00.1 Bradycardia, unspecified; R42 Dizziness and giddiness; I10 Essential (primary) hypertension; E78.5 Hyperlipidemia, unspecified; I25.10 Atherosclerotic heart disease of native coronary artery without angina pectoris; G40.909 Epilepsy, unspecified, not intractable, without status epilepticus; G62.9 Polyneuropathy, unspecified; N31.9 Neuromuscular dysfunction of bladder, unspecified; F41.9 Anxiety disorder, unspecified; R41.82 Altered mental status, unspecified; Z86.73 Personal history of transient ischemic attack (TIA), and cerebral infarction without residual deficits
CPT/HCPCS: 36415; 70450-TC; 71045-TC-FY; 80053; 80177; 80307; 81003; 82962; 84443; 84484; 85025; 85610; 85730; 93005; 93010; 99285-25; J1644; J7030

== ENCOUNTER 2019-03-16 11:18 | Inpatient (IN) | payer OTHER ==
[2019-03-16] MEDS ORDERED: LORazepam 2 MG/ML SDV VIAL ONE (11:24)
[2019-03-16 12:37] LABS: BASO % 0.9 % (0-2.0); EOS % 0.7 % (0-4.5); HEMATOCRIT 37.5 % (32.4-45.2); HEMOGLOBIN 12.4 GM/dL (10.7-15.3); LYMPH % 17.6 % (8-40); MCH 29.1 pg (25.7-33.7); MCHC 33.1 g/dl (32.0-36.0); MEAN CELL VOLUME 87.9 fl (80-96); MEAN PLT VOLUME 7.6 fl (7.5-11.1); MONO % 7.1 % (3.8-10.2); NEUT % 73.7 % (42.8-82.8); PLATELET COUNT 183 K/MM3 (134-434); RBC 4.27 M/mm3 (3.60-5.2); RDW 14.1 % (11.6-15.6); WHITE BLOOD COUNT 3.8 K/mm3 (4.0-10.0)
--- NOTE | 2019-03-16 12:41 | PDOC ---
History of Present Illness - General Chief Complaint: Seizure Stated Complaint: SEIZURE Time Seen by Provider: 03/16/19 12:15 History Source: Patient, Care Provider, Family (granddaughter) Exam Limitations: Language Barrier, Other (confusion) - History of Present Illness Initial Comments: 03/16/19 12:36 78yo F with PMH of HTN, HLD, CAD, CVA, Seizures presenting to ED with daughter and energy director s/p seizure like episode. Poultry Husbandry Worker said she noticed twitching and a seizure episode which lasted <1m at around 10am today. Patient lives alone and has aides that come from 9am-4pm daily and family/aides are unsure if patient has been taking her medication. Per granddaughter and aides, patient becomes rigid, drools, is incontinent and confused with seizures. Aide states that she is usually confused for an hour or two after episodes. Of note, she had another seizure here around 11am. No recent illnesses, fevers, nausea, vomiting, headaches, weakness, numbness/tingling, abdominal pain, changes in vision. She was seen here a few months ago in October and was transferred to [place]. She is taking Lamictal. PMD: [place] Neuro: [place] PMH: see hpi Meds: see med rec Allergies: plavix Past History - Past Medical History Allergies/Adverse Reactions: Allergies Allergy/AdvReac Type Severity Reaction Status Date / Time clopidogrel [From Plavix] Allergy Verified 03/16/19 12:59 Home Medications: Ambulatory Orders Lamotrigine 150 mg PO DAILY 11/16/18 Lamotrigine [Lamictal Xr] 250 mg PO HS 11/16/18 Amlodipine Besylate 0 mg PO ASDIR 03/16/19 Aspirin 81 mg PO DAILY 03/16/19 Carbamazepine 0 mg PO ASDIR 03/16/19 Lisinopril 0 mg PO ASDIR 03/16/19 Lubiprostone [Amitiza] 0 mcg PO ASDIR 03/16/19 Naproxen 0 mg PO ASDIR 03/16/19 Oxybutynin Chloride 0 mg PO ASDIR 03/16/19 Cardiac Disorders: Yes CVA: Yes (X 3 (2014)) COPD: No Disorders: Yes (frequency) HTN: Yes Hypercholesterolemia: Yes Seizures: Yes (11/2013) - Surgical History Appendectomy: Yes - Immunization History Immunization Up to Date: Yes - Suicide/Smoking/Psychosocial Hx Smoking History: Smoker current status UNK Have you smoked in the past 12 months: No Information on smoking cessation initiated: No Hx Alcohol Use: No Drug/Substance Use Hx: No Substance Use Type: None Hx Substance Use Treatment: No Review of Systems - Review of Systems Constitutional: No: Chills, Fever HEENTM: No: Symptoms Reported Respiratory: No: Cough, Shortness of Breath Cardiac (ROS): No: Symptoms Reported ABD/GI: No: Symptoms Reported : No: Symptoms Reported Musculoskeletal: No: Symptoms Reported Integumentary: No: Symptoms Reported Neurological: Yes: Seizure. No: Headache, Numbness, Weakness, Dizziness *Physical Exam - Vital Signs Last Vital Signs Temp Pulse Resp BP Pulse Ox 98.8 F 52 L 18 149/56 L 92 L 03/16/19 11:31 03/16/19 11:31 03/16/19 11:31 03/16/19 11:03/16/19 11:31 - Physical Exam General Appearance: Yes: Nourished, Appropriately Dressed. No: Apparent Distress HEENT: positive: EOMI, DIANE, Normal ENT Inspection Neck: positive: Trachea midline, Supple. negative: Carotid bruit Respiratory/Chest: positive: Lungs Clear, Normal Breath Sounds. negative: Wheezing, Hyperresonant, Dullness, Plerual Rub Cardiovascular: positive: Regular Rhythm, S1, S2, Murmur, Bradycardia Vascular Pulses: Carotid (R): 2+, Carotid (L): 2+, Dorsalis-Pedis (R): 2+, Doralis-Pedis (L): 2+ Gastrointestinal/Abdominal: positive: Normal Bowel Sounds, Soft. negative: Tender, Guarding, Rebound, Mass Musculoskeletal: negative: CVA Tenderness Extremity: positive: Normal Capillary Refill, Pelvis Stable. negative: Pedal Edema, Swelling Integumentary: positive: Normal Color, Dry, Warm. negative: Rash, Swelling, Ecchymosis Neurologic: positive: hand compositor II-XII NML intact, Alert, Normal Mood/Affect, Motor Strength 5/5, Confused. negative: Fully Oriented (oriented to self), Numbness, Sensory Deficit Heart Score/ECG Review - ECG Intrepretation Rhythm: Regular Rhythm Comment:: 03/16/19 13:42 sinus bradycardia - [place]: Normal - QRS Poor R Wave Progression: No Q Wave Present: No - ST and T Early Repolarization: No Flattened T Waves: Yes - ECG Impressions Bradycardia: Yes ED Treatment Course - LABORATORY CBC & Chemistry Diagram: 03/16/19 12:18 03/16/19 12:18 - RADIOLOGY Radiology Studies Ordered: Category Date Time Status HEAD CT WITHOUT CONTRAST [CT] Stat CT Scan 03/16/19 12:19 Ordered Medical Decision Making - Medical Decision Making 03/16/19 12:45 78yo F presenting for witnessed seizure x2. Patient has prolonged post ictal phase per neurologist, unsure if patient had returned to baseline between episodes. 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 She usually has a few seizures per year which are usually nocturnal with a prolonged post ictal phase. She takes Carbitrol 100mg am and 200mg pm. Also takes Lamictal 200mg am and 100mg pm. She was transferred to [place] cardiac care unit for bradycardia and has a loop recorder. No problems since then per neurologist. -given ativan for seizure in ED. Patient lives alone after caregivers leave at 4pm, patient may be non compliant with medications, may have infection (uti) or mass. will obtain labs, ekg, ct head, cxr, ua/ucx, lamictal levels. patient may benefit from admission; unsure if patient is in status because unsure if patient has returned to baseline. labs are wnl. lamictal levels pending. pending ekg, ct head. ua negative for infection. patient HR 52 however bp wnl. patient is confused but otherwise obeying commands. likely 2/2 ictal, low suspicion for low perfusion. 03/16/19 13:43 ekg: sinus bradycardia at 58bpm. pr 166, qtc 477. twi in V1, V3, III. flattened t waves in lateral leads. 03/16/19 13:44 Patient returning to baseline per aide. She can state , date and hospital name. CT: A noncontrast CT scan of the brain was performed. Compared to prior CT scan of the head dated 11/15/2017 There is moderate volume loss and ventricular dilatation. Mild periventricular chronic microvascular ischemic changes are present No mass lesion, gross acute infarct or intracranial hemorrhage are identified. Visualized paranasal sinuses and mastoid air cells are well aerated. Calcification of the cavernous carotid arteries are noted. The calvarium is intact . Impression: No significant interval change. Moderate atrophy and ventricular dilatation without CT evidence of acute intracranial pathology. 03/16/19 15:43 Has not had another seizure, mentating well, returning to baseline. Will admit obs for seizures with possible status epilepticus *DC/Admit/Observation/Transfer Diagnosis at time of Disposition: Bradycardia Seizure Qualifiers: Convulsion type: unspecified Qualified Code(s): R56.9 - Unspecified convulsions - Discharge Dispostion Condition at time of disposition: Good Decision to Admit order: Yes - Referrals - Patient Instructions - Post Discharge Activity
[2019-03-16 12:54] LABS: PH,URINE 8.5 (5.0-8.0); URINE APPEARANCE CLEAR; URINE BILIRUBIN NEGATIVE (NEGATIVE); URINE COLOR YELLOW; URINE GLUCOSE (UA) NEGATIVE (NEGATIVE); URINE KETONE NEGATIVE (NEGATIVE); URINE LEUK ESTERASE NEGATIVE (NEGATIVE); URINE NITRITE NEGATIVE (NEGATIVE); URINE PROTEIN NEGATIVE (NEGATIVE); URINE UROBILINOGEN 0.2 mg/dL (0.2-1.0)
[2019-03-16 13:01] LABS: INR 0.94 (0.83-1.09); PROTHROMBIN TIME (PATIENT) 11.1 SEC (9.7-13.0)
[2019-03-16 13:06] LABS: ALBUMIN 3.9 g/dl (3.4-5.0); BILIRUBIN,TOTAL 0.2 mg/dL (0.2-1); BLOOD UREA NITROGEN 14.5 mg/dL (7-18); CREATININE 0.5 mg/dL (0.55-1.3); POTASSIUM 4.4 mmol/L (3.5-5.1); TOT PROT 6.8 g/dl (6.4-8.2)
--- NOTE | 2019-03-16 13:42 | PDOC ---
Attending Attestation - Resident Resident Name: Kym Couch - ED Attending Attestation I have performed the following: I have examined & evaluated the patient, The case was reviewed & discussed with the resident, I agree w/resident's findings & plan, Exceptions are as noted - HPI HPI: 03/16/19 13:36 78 F with h/o HTN, HLD, CAD, CVA, Seizure d/o on lamictal and tegretol, presenting to ED with 2 seizures. Pt had first seizure this morning, witnessed by pt's electric meter technician. She notes that pt had GTC lasting about 1 minute at 10 am. Pt had incontinence during the episode and subsequently was confused. EMS was called, and upon arrival to ED, pt had 2nd seizure of similar duration. Metal Cnc Operator does not note any recent fevers. - Physicial Exam PE: 03/16/19 13:42 GENERAL: Awake, alert, in no acute distress. HEAD: No signs of trauma EYES: PERRLA, EOMI, sclera anicteric, conjunctiva clear ENT: Auricles normal inspection, hearing grossly normal, nares patent, oropharynx clear without exudates. Moist mucosa NECK: Nontender, no stepoffs, Normal ROM, supple, no lymphadenopathy, JVD, or masses LUNGS: Breath sounds equal, clear to auscultation bilaterally. No wheezes, and no crackles HEART: Regular rate and rhythm, normal S1 and S2, no murmurs, rubs or gallops ABDOMEN: Soft, nontender, normoactive bowel sounds. No guarding, no rebound. No masses EXTREMITIES: Normal range of motion, no edema. No clubbing or cyanosis. No cords, erythema, or tenderness NEUROLOGICAL: Cranial nerves II through XII intact. 5/5 strength and sensation in all extremities, Normal speech, normal gait, normal cerebellar function SKIN: Warm, Dry, normal turgor, no rashes or lesions noted. - Medical Decision Making 03/16/19 13:42 78 F with 2 seizures this morning. Will evaluate for infectious process. Head CT to r/o intracranial process. - Labs - CXR, UA - CT head
--- NOTE | 2019-03-16 15:32 | HP ---
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 Public Health Representative said she noticed twitching and a seizure episode which lasted <1m at around 10am today. Patient lives alone and has aides that come from 9am-4pm daily and family/aides are unsure if patient has been taking her medication. Per granddaughter and aides, patient becomes rigid, drools, is incontinent and confused with seizures. Aide states that she is usually confused for an hour or two after episodes. Of note, she had another seizure here around 11am. No recent illnesses, fevers, nausea, vomiting, headaches, weakness, numbness/tingling, abdominal pain, changes in vision. She was seen here a few months ago in October and was transferred to [facility]. She is taking Lamictal. 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) History of Recent Travel: No Home Medications - Allergies Allergies/Adverse Reactions: Allergies Allergy/AdvReac Type Severity Reaction Status Date / Time clopidogrel [From Plavix] Allergy Verified 03/16/19 12:59 - Home Medications Home Medications: Ambulatory Orders Lamotrigine 150 mg PO DAILY 11/16/18 Lamotrigine [Lamictal Xr] 250 mg PO HS 11/16/18 Amlodipine Besylate 0 mg PO ASDIR 03/16/19 Aspirin 81 mg PO DAILY 03/16/19 Carbamazepine 0 mg PO ASDIR 03/16/19 Lisinopril 0 mg PO ASDIR 03/16/19 Lubiprostone [Amitiza] 0 mcg PO ASDIR 03/16/19 Naproxen 0 mg PO ASDIR 03/16/19 Oxybutynin Chloride 0 mg PO ASDIR 03/16/19 Physical Examination Vital Signs: Vital Signs Temperature 98.8 F 03/16/19 11:31 Pulse Rate 52 L 03/16/19 11:31 Respiratory Rate 18 03/16/19 11:31 Blood Pressure 149/56 L 03/16/19 11:31 O2 Sat by Pulse Oximetry (%) 92 L 03/16/19 11:31 awake alert back to baseline Constitutional: Yes: Calm Cardiovascular: Yes: Regular Rate and Rhythm, S1, S2 Respiratory: Yes: CTA Bilaterally, Wheezes Gastrointestinal: Yes: Soft Edema: No Labs: CBC, BMP 03/16/19 12:18 03/16/19 12:18 Problem List - Problems (1) Seizure Assessment/Plan: ativan prn lamictal and tegretol neurology consult neurocheck Code(s): R56.9 - UNSPECIFIED CONVULSIONS Qualifiers: Convulsion type: unspecified Qualified Code(s): R56.9 - Unspecified convulsions (2) Bradycardia Assessment/Plan: tele avoid AV sami blocking agents cardio Code(s): R00.1 - BRADYCARDIA, UNSPECIFIED (3) Hypertension Assessment/Plan: norvasc and lisinopril Code(s): I10 - ESSENTIAL (PRIMARY) HYPERTENSION
[2019-03-16] MEDS ORDERED: LORazepam 2 MG/ML SDV VIAL IVPUSH PRN (15:54)
[2019-03-16] MEDS ORDERED: carBAMazepine 200 MG TABLET PO SCH (22:00)
[2019-03-16] MEDS ORDERED: LAMOTRIGINE 200 MG, LAMOTRIGINE 50 MG PO SCH (22:00)
[2019-03-17] MEDS ORDERED: carBAMazepine 200 MG TABLET ONE (00:32)
[2019-03-17] MEDS ORDERED: lamoTRIgine 100 MG TABLET (FP) ONE ×2 (00:32→09:48)
[2019-03-17] MEDS ORDERED: HEPARIN NA (PORCINE) 5,000 UNITS/ML 1ML VIAL ONE (00:33)
[2019-03-17] MEDS ORDERED: lamoTRIgine 25 MG TABLET ONE ×2 (00:33→09:49)
[2019-03-17] MEDS: HEPARIN NA (PORCINE) 5,000 UNITS/ML 1ML VIAL SQ SCH ×3 (00:39→14:00)
[2019-03-17 03:17] VITALS: BMI 25.7
[2019-03-17] MEDS ORDERED: LAMOTRIGINE 200 MG, LAMOTRIGINE 50 MG PO SCH (07:00)
[2019-03-17] MEDS ORDERED: carBAMazepine 100 MG TAB.CHEW PO SCH (07:00)
[2019-03-17 07:03] LABS: BASO % 0.9 % (0-2.0); EOS % 2.3 % (0-4.5); HEMATOCRIT 36.3 % (32.4-45.2); HEMOGLOBIN 12.1 GM/dL (10.7-15.3); LYMPH % 39.1 % (8-40); MCH 29.2 pg (25.7-33.7); MCHC 33.4 g/dl (32.0-36.0); MEAN CELL VOLUME 87.5 fl (80-96); MEAN PLT VOLUME 7.9 fl (7.5-11.1); MONO % 10.9 % (3.8-10.2); NEUT % 46.8 % (42.8-82.8); PLATELET COUNT 198 K/MM3 (134-434); RBC 4.15 M/mm3 (3.60-5.2); RDW 14.1 % (11.6-15.6)
[2019-03-17 07:28] LABS: ALBUMIN 3.5 g/dl (3.4-5.0); ALK PHOS 75 U/L (45-117); ANION GAP 8 MMOL/L (8-16); BILIRUBIN,TOTAL 0.4 mg/dL (0.2-1); BLOOD UREA NITROGEN 15.7 mg/dL (7-18); CALCIUM 8.8 mg/dL (8.5-10.1); CHLORIDE 100 mmol/L (98-107); CHOLESTEROL 177 mg/dL (50-200); CO2 28 mmol/L (21-32); CREATININE 0.5 mg/dL (0.55-1.3); GLUCOSE,RANDOM 78 mg/dL (74-106); HDL CHOLESTEROL 99 mg/dL (40-60); MAGNESIUM 2.5 mg/dL (1.8-2.4); PHOSPHOROUS 3.8 mg/dL (2.5-4.9); POTASSIUM 3.8 mmol/L (3.5-5.1); SGOT/AST 23 U/L (15-37); SGPT/ALT 22 U/L (13-61); SODIUM 136 mmol/L (136-145); TOT PROT 6.3 g/dl (6.4-8.2); TRIGLYCERIDES 42 mg/dL (0-150)
--- NOTE | 2019-03-17 09:31 | PN ---
Progress Note, Physician - Current Medication List Current Medications: Active Medications Amlodipine Besylate (Norvasc -) 5 mg PO DAILY [facility] Aspirin (Asa -) 81 mg PO DAILY [facility] Carbamazepine (Tegretol -) 100 mg PO AM [facility] Last Admin: 03/17/19 07:09 Dose: 100 mg Carbamazepine (Tegretol -) 200 mg PO HS [facility] Last Admin: 03/17/19 00:39 Dose: 200 mg Heparin Sodium (Porcine) (Heparin -) 5,000 unit SQ TID [facility] Last Admin: 03/17/19 07:09 Dose: 5,000 unit Lamotrigine 100 mg/ (Lamotrigine 50 mg) 150 mg PO DAILY [facility] Lamotrigine 200 mg/ (Lamotrigine 50 mg) 250 mg PO HS [facility] Lisinopril (Prinivil) 5 mg PO DAILY [facility] Lorazepam (Ativan Injection -) 2 mg IVPUSH BID PRN PRN Reason: AGITATION - Objective Vital Signs: Vital Signs Temperature 98 F 03/17/19 08:50 Pulse Rate 74 03/17/19 08:50 Respiratory Rate 17 03/17/19 08:50 Blood Pressure 127/75 03/17/19 08:50 O2 Sat by Pulse Oximetry (%) 98 03/17/19 02:38 Cardiovascular: Yes: Regular Rate and Rhythm Respiratory: Yes: Regular, CTA Bilaterally Gastrointestinal: Yes: Normal Bowel Sounds, Soft. No: Tenderness Neurological: Yes: Alert, Oriented Labs: CBC, BMP 03/17/19 06:05 03/17/19 06:00 INR, PTT INR 0.94 (0.83-1.09) 03/16/19 12:39 Assessment/Plan - Problems (1) Seizure Assessment/Plan: with breakthrough ativan prn lamictal and tegretol neurology consult neurocheck Code(s): R56.9 - UNSPECIFIED CONVULSIONS Qualifiers: Convulsion type: unspecified Qualified Code(s): R56.9 - Unspecified convulsions (2) Bradycardia Assessment/Plan: tele not on av sami blocking agents avoid AV sami blocking agents cardio Code(s): R00.1 - BRADYCARDIA, UNSPECIFIED (3) Hypertension Assessment/Plan: norvasc and lisinopril Code(s): I10 - ESSENTIAL (PRIMARY) HYPERTENSION
[2019-03-17] MEDS ORDERED: LAMOTRIGINE 100 MG, LAMOTRIGINE 50 MG PO SCH (10:00)
[2019-03-17] MEDS ORDERED: LISINOPRIL 5 MG TABLET (FP) PO SCH (10:00)
[2019-03-17] MEDS ORDERED: ASPIRIN 81 MG CHEWABLE TABLETS PO SCH (10:00)
[2019-03-17] MEDS ORDERED: amLODIPine BESYLATE 5 MG TABLET (FP) PO SCH (10:00)
[2019-03-17] MEDS ORDERED: lamoTRIgine 100 MG TABLET (FP) PO SCH ×2 (10:00)
--- NOTE | 2019-03-17 10:18 | CON.CARD ---
Consult Consult Specialty:: Cardiology Referred by:: Dr. Johansen Reason for Consultation:: bradycardia - History of Present Illness Chief Complaint: seizure History of Present Illness: 78 year old woman with a pmh HTN, HLD, seizure disorder, CVA x3, prior admissions for seizures and associated bradycardia in that setting including 2018 now again admitted with seizure and noted to have sinus bradycardia. pt seen and examined today ambulatory around her room. states she is feeling better. denies any palpitations, lightheadedness, dizziness. no chest pain or sob. 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) History of Recent Travel: No Home Medications - Allergies Allergies/Adverse Reactions: Allergies Allergy/AdvReac Type Severity Reaction Status Date / Time clopidogrel [From Plavix] Allergy Verified 03/16/19 12:59 - Home Medications Home Medications: Ambulatory Orders Lamotrigine 150 mg PO DAILY 11/16/18 Lamotrigine [Lamictal Xr] 250 mg PO HS 11/16/18 Amlodipine Besylate 0 mg PO ASDIR 03/16/19 Aspirin 81 mg PO DAILY 03/16/19 Carbamazepine 0 mg PO ASDIR 03/16/19 Lisinopril 0 mg PO ASDIR 03/16/19 Lubiprostone [Amitiza] 0 mcg PO ASDIR 03/16/19 Naproxen 0 mg PO ASDIR 03/16/19 Oxybutynin Chloride 0 mg PO ASDIR 03/16/19 Review of Systems - Review of Systems Constitutional: reports: Weakness. denies: No Symptoms, Chills, Diaphoresis, Fever, Lethargy, Loss of Appetite, Malaise, Night Sweats, Unintentional Wgt. Loss, Other Eyes: denies: No Symptoms, Blind Spots, Blurred Vision, Double Vision, Eye Pain , Floaters, Photophobia, Recent Change in Vision, Other HENT: denies: No Symptoms, Difficult Swallowing, Ear Discharge, Ear Pain, Epistaxis, Gingival Bleeding, Hearing Loss, Mouth Swelling, Nasal Congestion, Ocular Prosthesis, Throat Pain, Toothache, Ringing in Ears, Other Neck: denies: No Symptoms, Decreased ROM, Lumps, Pain on Movement, Stiffness, Swollen Glands, Tenderness, Other Cardiovascular: denies: No Symptoms, Chest Pain, Edema, Palpitations, Shortness of Breath, Other Respiratory: denies: No Symptoms, Cough, Exercise Intolerance, Hemoptysis, Orthopnea, PND, Snoring, SOB, SOB on Exertion, Wheezing, Other Gastrointestinal: denies: No Symptoms, Abdominal Pain, Bloating, Constipation, Diarrhea, Dysphagia, Indigestion, Melena, Nausea, Rectal Bleeding, Vomiting, Vomiting Blood, Other Genitourinary: denies: No Symptoms, Burning, Discharge, Dysuria, Flank Pain, Frequency, Hematuria, Incontinence, Lesions, Menses, Pain, Testicular Mass, Testicular Pain, Testicular Swelling, Urgency, Vaginal Bleeding, Other Breasts: denies: No Symptoms Reported, See HPI, Breast Implants, Discharge from Nipple, Lumps, Pain, Skin Changes, Other Musculoskeletal: denies: No Symptoms, Back Pain, Crepitus, Decreased ROM, Extremity Pain, Joint Pain, Joint Swelling, Muscle Pain, Muscle Cramps, Muscle Weakness, Other Integumentary: denies: No Symptoms, Blister, Bruising, Change in Color, Eczema, Erythema, Incision, Lesions, Lump, Pallor, Pruritis, Rash, Wound, Other Neurological: reports: Seizure. denies: No Symptoms, Change in LOC, Change in Speech, Confusion, Dizziness, Headache, Incoordination, Numbness, Parasthesia, Pre-Existing Deficit, Syncope, Tremors, Unsteady Gait, Weakness, Other Endocrine: denies: No Symptoms, Excessive Sweating, Flushing, Increased Hunger, Increased Thirst, Intolerance to Cold, Intolerance to Heat, Unexplained Weight Gain, Unexplained Weight Loss, Other Hematology/Lymphatic: denies: No Symptoms, Easily Bruised, Excessive Bleeding, Swollen Glands, Other Psychiatric: denies: No Symptoms, Altered Sleep Pattern, Anxiety, Depression, Hallucinations, Panic, Paranoia, Suicidal, Other Vital Signs: Vital Signs Temperature 98 F 03/17/19 08:50 Pulse Rate 74 03/17/19 08:50 Respiratory Rate 17 03/17/19 08:50 Blood Pressure 127/75 03/17/19 08:50 O2 Sat by Pulse Oximetry (%) 98 03/17/19 02:38 Constitutional: Yes: No Distress, Calm Eyes: Yes: Conjunctiva Clear, EOM Intact HENT: Yes: Atraumatic, Normocephalic Neck: Yes: Supple, Trachea Midline Respiratory: Yes: Regular, CTA Bilaterally. No: Rales, Rhonchi, SOB, Wheezes Gastrointestinal: Yes: Normal Bowel Sounds, Soft Cardiovascular: Yes: Regular Rate and Rhythm. No: Bradycardia, Tachycardia, Pulse Irregular, Gallop, Rub, Varicosities JVD: No Carotid Bruit: No PMI: Non-Displaced Heart Sounds: Yes: S1, S2. No: Split S2, S3, S4, Clicks, Gallop, Rub, Bruit Murmur: No: Systolic Murmur, Diastolic Murmur Extremities: Yes: WNL Edema: No Peripheral Pulses WNL: Yes Neurological: Yes: Alert, Oriented Psychiatric: Yes: Alert, Oriented - Other Data Labs, Other Data: CBC, BMP 03/17/19 06:05 03/17/19 06:00 INR, PTT INR 0.94 (0.83-1.09) 03/16/19 12:39 Troponin, BNP 03/16/19 03/17/19 12:18 06:00 Troponin I < 0.02 < 0.02 B-Natriuretic Peptide 483.0 H Troponin, BNP 03/16/19 03/17/19 12:18 06:00 Troponin I < 0.02 < 0.02 B-Natriuretic Peptide 483.0 H sinus bradycardia 58bpm, [facility] Imaging - Results Chest X-ray: Report Reviewed, Image Reviewed EKG: Report Reviewed, Image Reviewed Other: Report Reviewed, Image Reviewed (tele-nsr, mild sinus willow) Assessment/Plan 78 year old woman with a pmh HTN, HLD, seizure disorder, CVA x3, prior admissions for seizures and associated bradycardia in that setting including 2018 now again admitted with seizure and noted to have sinus bradycardia. pt seen and examined today ambulatory around her room. states she is feeling better. denies any palpitations, lightheadedness, dizziness. no chest pain or sob. Sinus bradycardia -secondary to seizure -HR has now improved -avoid AV sami blockers -no additional inpatient cardiac work up is needed at this time -[facility] outpatient fup with her lcac operator. Will see as needed. please call with any additional questions.
--- NOTE | 2019-03-17 11:01 | EKG ---
Test Reason : Blood Pressure : / mmHG Vent. Rate : 058 BPM Atrial Rate : 058 BPM P-R Int : 166 ms QRS Dur : 092 ms QT Int : 486 ms P-R-T Axes : 006 -02 005 degrees QTc Int : 477 ms POOR DATA QUALITY, INTERPRETATION MAY BE ADVERSELY AFFECTED SINUS BRADYCARDIA MINIMAL VOLTAGE CRITERIA FOR LVH, MAY BE NORMAL VARIANT BORDERLINE ECG WHEN COMPARED WITH ECG OF 16-NOV-2018 19:19, SINUS RHYTHM HAS REPLACED ATRIAL FIBRILLATION VENT. RATE HAS INCREASED BY 19 BPM NONSPECIFIC T WAVE ABNORMALITY NOW EVIDENT IN LATERAL LEADS QT HAS LENGTHENED Confirmed by Myles Montana ([id number]) on 03/17/2019 11:01:22 AM Referred By: Confirmed By:Myles Montana
--- NOTE | 2019-03-17 18:00 | HOSP ---
Physical Examination Vital Signs: Vital Signs Temperature 98.6 F 03/17/19 14:05 Pulse Rate 61 03/17/19 14:05 Respiratory Rate 16 03/17/19 14:05 Blood Pressure 133/59 L 03/17/19 14:05 O2 Sat by Pulse Oximetry (%) 98 03/17/19 09:00 Labs: CBC, BMP 03/17/19 06:05 03/17/19 06:00 Hospitalist Encounter Assessment: called by Rn that patient is requesting to sign out AMA. Spoke to patient and explained that if she left she could develop additional seizures, develop a stroke, and or . Verbalized understanding and stated she has an appointment with home neurologist tomorrow.
[2019-03-17 18:28] VITALS: BP 157/75; PULSE 70; TEMP 97.9
== END 2019-03-17 19:05 | disposition left against medical advice (07) | DRG 101 ==
LOC: JER 11:18 → JERBED 13:46 → OBSVTOIN 15:29 → J4S 22:32 → JERBED 23:05 → J4S 03-17 01:03
PROVIDERS: ADMIT Student in an Organized Health Care Education/Training Program; ATTEND Student in an Organized Health Care Education/Training Program
DX: G40.909 Epilepsy, unspecified, not intractable, without status epilepticus (principal); R00.1 Bradycardia, unspecified; E78.5 Hyperlipidemia, unspecified; I10 Essential (primary) hypertension; I25.10 Atherosclerotic heart disease of native coronary artery without angina pectoris
CPT/HCPCS: 36415; 70450-TC; 71045-TC-FY; 80053; 80061; 80175; 81003; 82550; 82553; 83721; 83735; 83880; 84100; 84484; 85025; 85610; 85730; 87086; 93005; 93010; 99285-25; G0378; J1644

== ENCOUNTER 2019-05-22 16:36 | Inpatient (IN) | payer OTHER ==
[2019-05-22] MEDS ORDERED: ONDANSETRON 4 MG/2 ML VIAL IVPUSH ONE (17:55)
[2019-05-22] MEDS ORDERED: MECLIZINE HCL 25 MG TABLET (FP) PO ONE (17:57)
[2019-05-22] MEDS ORDERED: SODIUM CHLORIDE 1,000 ML IV SCH (18:00)
--- NOTE | 2019-05-22 18:18 | PDOC ---
Documentation entered by Miguel Valdez SCRIBE, acting as scribe for Madison Spivey MD. Madison Spivey MD: This documentation has been prepared by the José Miguel trimble Daniel, SCRIBE, under my direction and personally reviewed by me in its entirety. I confirm that the documentation accurately reflects all work, treatment, procedures, and medical decision making performed by me. History of Present Illness - General Stated Complaint: NAUSEA History Source: Patient, Family Exam Limitations: No Limitations - History of Present Illness Initial Comments: 05/22/19 18:01 The patient is a 79 year old female with a past medical history of HTN, HLD, CAD , CVA (with left sided weakness), and epilepsy here today for evaluation of general weakness. The daughter reports that the patient ate some soup around 3 PM and suddenly felt room spinning dizziness, nauseous, vomited, had slurred speech, and had generalized weakness to the point where she couldnt walk or get up from the couch. Daughter notes that the patients symptoms have improved since they started and also notes that the patient has had recent back pain and increased urinary frequency. Patient denies headache. Denies fever, chills. Denies chest pain, shortness of breath. Denies diarrhea, abdominal pain. Allergies: clopidogrel PCP: Roxanna Ramirez Neurologist: Tiara Doan NIH Stroke Scale - Last Known Well Date/Time & Onset Date Last Known Well: 05/22/19 Time Last Known Well: 15:00 - Initial Evaluation Level of consciousness: Alert Ask patient the month and their age: Answers both correctly Ask patient to open & close eyes; make fist and let go: Obeys both correctly Best gaze (horizontal eye movement): Normal Visual field testing: No visual field loss Facial paresis (Show teeth/raise eyebrows/close eyes tight): Normal symmetrical movement Motor Function: Left Arm: Normal Motor Function: Right Arm: Normal (extends arm 90 (or 45) degrees for 10 seconds without drift Motor Function: Left Leg: Some effort against gravity Motor Function: Right Leg: Normal (extends leg 30 degrees for 5 seconds without drift) Sensory(Use pinprick test arms,legs,trunk,face/side to side): Normal Best language (Describe picture, name items, read sentences): No Aphasia Dysarthria (read several words): Normal articulation Extinction and Inattention: No abnormality (( old left sided weakness)) - Total Score NIH Stroke Scale Score: 2 Past History - Past Medical History Allergies/Adverse Reactions: Allergies Allergy/AdvReac Type Severity Reaction Status Date / Time clopidogrel [From Plavix] Allergy Verified 05/22/19 20:42 Home Medications: Ambulatory Orders Lamotrigine 100 mg PO DAILY 11/16/18 Lamotrigine [Lamictal Xr] 300 mg PO HS 11/16/18 Amlodipine Besylate 10 mg PO DAILY 03/16/19 Aspirin 81 mg PO DAILY 03/16/19 Carbamazepine 200 mg PO DAILY 03/16/19 Lisinopril 20 mg PO DAILY 03/16/19 Lubiprostone [Amitiza] 8 mcg PO BID 03/16/19 Oxybutynin Chloride 5 mg PO DAILY 03/16/19 Acetaminophen [Tylenol] 325 mg PO Q8H 05/22/19 Calcium Citrate [Calcitrate] 950 mg PO DAILY 05/22/19 Cetirizine HCl [24Hour Allergy] 10 mg PO DAILY 05/22/19 Gabapentin [Neurontin -] 100 mg PO HS 05/22/19 Pravastatin Sodium [Pravachol (Nf)] 40 mg PO HS 05/22/19 clonazePAM [Klonopin -] 0.5 mg PO DAILY 05/22/19 Cardiac Disorders: Yes (CAD) CVA: Yes (X 3 (2014)) COPD: No Disorders: Yes (neurogenic bladder,frequency) HTN: Yes Hypercholesterolemia: Yes Seizures: Yes (11/2013) - Surgical History Appendectomy: Yes Orthopedic Surgery: Yes (rt hand 4 fingers mputated) - Immunization History Immunization Up to Date: Yes - Psycho Social/Smoking Cessation Hx Smoking History: Never smoked Have you smoked in the past 12 months: No Hx Alcohol Use: No Drug/Substance Use Hx: No Substance Use Type: None Hx Substance Use Treatment: No Review of Systems - Review of Systems Able to Perform ROS?: Yes Comments:: 05/22/19 18:02 GENERAL/CONSTITUTIONAL: No fever or chills. HEAD, EYES, EARS, NOSE AND THROAT: No change in vision. No ear pain or discharge. No sore throat. CARDIOVASCULAR: No chest pain or shortness of breath. RESPIRATORY: No cough, wheezing, or hemoptysis. GASTROINTESTINAL: +nausea. +vomiting. No diarrhea or constipation. GENITOURINARY: No dysuria, frequency, or change in urination. MUSCULOSKELETAL: No joint or muscle swelling or pain. No neck or back pain. SKIN: No rash NEUROLOGIC: +generalized weakness. +vertigo. +slurred speech. No headache, loss of consciousness, or change in sensation. ENDOCRINE: No increased thirst. No abnormal weight change. HEMATOLOGIC/LYMPHATIC: No anemia, easy bleeding, or history of blood clots. ALLERGIC/IMMUNOLOGIC: No hives or skin allergy. *Physical Exam - Physical Exam 05/22/19 18:13 awake alert facies symmetric. EOMI, moist mucous membranes. lungs clear bilat heart rrr no mrg abd soft nt nd ext wwp. nuero speech mild slurring. strength 5/ 5 bilat upper ext. left lower ext lift agaiinst gravity , drifts but hits the bed. right leg 5/5 . facies symmetric. ED Treatment Course - LABORATORY CBC & Chemistry Diagram: 05/22/19 18:15 05/22/19 18:15 - RADIOLOGY Radiology Studies Ordered: Category Date Time Status HEAD CT (STROKE) [CT] Stat CT Scan 05/22/19 17:54 Taken Medical Decision Making - Medical Decision Making 05/22/19 18:16 79 yo F h/o htn ca cva residual left sided weakness, here with n/v vertigo. states started arond 3 pm. worse with movement and sitting. mild left sided weakness on exam. plan ct head. nuero consult. sxs seem peripheral due to postional however due to high risk code stroke initiated. pt not TPA candidate as overall improving since arrival to ED. speech improved. will call pt private nuerologist. dr Doan. zofran, ivf, labs eg trop likley admit. may rquire mRI however pt has a h/o loop recorder. 05/22/19 21:01 ct head no acute changes oVERALL Pt feels impoved following zofran and meclizine. however du eto h/o speech changes. and prior cva. will admit possible TIA. not TPA candidate as sxs improved while in ED. pt pcp is dr ramirez. evette chung hospitalist for admission overnight. 05/22/19 21:[address] Doan [phone] (cell ) 05/22/19 21:35 meds lamictal 100 Q am, 300 mg q am ( 400 mg qam ER) carbatrol 100 mg q am, 200 m qhs norvae 10 mg q day gabapentin 100 mg qhs lisinopril 20 mg dialy asa 81 mg clonazepem 0.5 mg qpm sleep. 05/22/19 21:47 d/w nuerologist dr doan , agrees with admission, MRI, states is possible with loop recorder. verified her seizure meds. Discharge - Discharge Information Problems reviewed: Yes Clinical Impression/Diagnosis: TIA (transient ischemic attack), Vertigo Condition: Improved - Admission Yes - Follow up/Referral Referrals: Roxanna Ramirez MD [Primary Care Provider] - - Patient Discharge Instructions - Post Discharge Activity
[2019-05-22 18:38] LABS: BASO % 0.4 % (0-2.0); EOS % 0.6 % (0-4.5); HEMATOCRIT 39.2 % (32.4-45.2); HEMOGLOBIN 12.8 GM/dL (10.7-15.3); LYMPH % 12.6 % (8-40); MCH 28.8 pg (25.7-33.7); MCHC 32.6 g/dl (32.0-36.0); MEAN CELL VOLUME 88.3 fl (80-96); MEAN PLT VOLUME 8.1 fl (7.5-11.1); MONO % 6.7 % (3.8-10.2); NEUT % 79.7 % (42.8-82.8); PLATELET COUNT 217 K/MM3 (134-434); RBC 4.44 M/mm3 (3.60-5.2); WHITE BLOOD COUNT 5.9 K/mm3 (4.0-10.0)
[2019-05-22] MEDS ORDERED: ONDANSETRON 4 MG/2 ML VIAL ONE (18:41)
[2019-05-22] MEDS ORDERED: MECLIZINE HCL 25 MG TABLET (FP) ONE (18:41)
[2019-05-22 18:43] LABS: INR 0.96 (0.83-1.09); PROTHROMBIN TIME (PATIENT) 11.3 SEC (9.7-13.0)
[2019-05-22 18:45] LABS: ACTIVATED PTT 30.5 SECONDS (25.2-36.5)
[2019-05-22 19:03] LABS: ALBUMIN 3.8 g/dl (3.4-5.0); BILIRUBIN,TOTAL 0.3 mg/dL (0.2-1); BLOOD UREA NITROGEN 13.2 mg/dL (7-18); CALCIUM 9.1 mg/dL (8.5-10.1); CREATININE 0.5 mg/dL (0.55-1.3); POTASSIUM 4.1 mmol/L (3.5-5.1); TOT PROT 7.1 g/dl (6.4-8.2)
[2019-05-22 19:51] LABS: URINE APPEARANCE CLEAR; URINE BILIRUBIN NEGATIVE (NEGATIVE); URINE COLOR YELLOW; URINE GLUCOSE (UA) 2+ (NEGATIVE); URINE KETONE NEGATIVE (NEGATIVE); URINE LEUK ESTERASE NEGATIVE (NEGATIVE); URINE NITRITE NEGATIVE (NEGATIVE); URINE PROTEIN NEGATIVE (NEGATIVE); URINE UROBILINOGEN 0.2 mg/dL (0.2-1.0)
[2019-05-22] MEDS ORDERED: carBAMazepine 200 MG TABLET PO ONE (21:51)
[2019-05-22] MEDS ORDERED: clonazePAM 0.5 MG TABLET PO ONE (21:52)
[2019-05-22] MEDS ORDERED: GABAPENTIN 100 MG CAPSULE (FP) PO ONE (21:52)
--- NOTE | 2019-05-22 22:16 | HP ---
Admitting History and Physical - Primary Care Physician PCP: Dr. Johansen - Admission Chief Complaint: generalized weakness and nausea History of Present Illness: 79 y/o F with PMH of HTN, HLD, CAD, CVA, Seizures presenting to ED with daughter for evaluation of general weakness. The daughter reports patient ate some soup around 3 PM and suddenly felt room spinning, dizziness, nauseous, vomited, had slurred speech, and had generalized weakness to the point where she couldnt walk or get up from the couch. However daughter noted that the patients symptoms have improved since they started, now with increased urinary frequency. No recent illnesses, fevers, nausea, vomiting, headaches, weakness, numbness/tingling, abdominal pain, changes in vision. Patient has loop recorder in place. 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: CVA (CVA x3 (2015)), Peripheral Neuropathy, Seizure (11/2013), Vertigo Cardiovascular: Yes: CAD, HTN, Hyperlipdemia Renal/: Yes: Neurogenic Bladder (on ditropan) Psych: Yes: Anxiety - Past Surgical History Past Surgical History: Yes: Appendectomy, Additional Past Surgical History: right hand digits amputation - Smoking History Smoking history: Never smoked Have you smoked in the past 12 months: No - Alcohol/Substance Use Hx Alcohol Use: No History of Substance Use: reports: None - Social History Usual Living Arrangement: Yes: Alone, Other (with teacher home therapy) 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) History of Recent Travel: No Home Medications - Allergies Allergies/Adverse Reactions: Allergies Allergy/AdvReac Type Severity Reaction Status Date / Time clopidogrel [From Plavix] Allergy Verified 05/22/19 20:42 - Home Medications Home Medications: Ambulatory Orders Lamotrigine 100 mg PO DAILY 11/16/18 Lamotrigine [Lamictal Xr] 300 mg PO HS 11/16/18 Amlodipine Besylate 10 mg PO DAILY 03/16/19 Aspirin 81 mg PO DAILY 03/16/19 Carbamazepine 200 mg PO DAILY 03/16/19 Lisinopril 20 mg PO DAILY 03/16/19 Lubiprostone [Amitiza] 8 mcg PO BID 03/16/19 Oxybutynin Chloride 5 mg PO DAILY 03/16/19 Acetaminophen [Tylenol] 325 mg PO Q8H 05/22/19 Calcium Citrate [Calcitrate] 950 mg PO DAILY 05/22/19 Cetirizine HCl [24Hour Allergy] 10 mg PO DAILY 05/22/19 Gabapentin [Neurontin -] 100 mg PO HS 05/22/19 Pravastatin Sodium [Pravachol (Nf)] 40 mg PO HS 05/22/19 clonazePAM [Klonopin -] 0.5 mg PO DAILY 05/22/19 Family Medical History Family History: Denies Review of Systems - Review of Systems Constitutional: reports: Weakness Eyes: reports: No Symptoms HENT: reports: No Symptoms Neck: reports: No Symptoms Cardiovascular: reports: No Symptoms Respiratory: reports: No Symptoms Gastrointestinal: reports: Nausea, Vomiting Genitourinary: reports: Frequency Musculoskeletal: reports: No Symptoms Integumentary: reports: No Symptoms Neurological: reports: Change in Speech, Weakness, Other (vertigo) Endocrine: reports: No Symptoms Hematology/Lymphatic: reports: No Symptoms Psychiatric: reports: No Symptoms Physical Examination Vital Signs: Vital Signs Temperature 98.8 F 05/22/19 16:45 Pulse Rate 94 H 05/22/19 16:45 Respiratory Rate 21 H 05/22/19 16:45 Blood Pressure 132/48 L 05/22/19 16:45 O2 Sat by Pulse Oximetry (%) 92 L 05/22/19 16:45 Constitutional: Yes: No Distress, Calm Eyes: Yes: Conjunctiva Clear, EOM Intact HENT: Yes: Atraumatic, Normocephalic Neck: Yes: Supple, Trachea Midline Cardiovascular: Yes: Regular Rate and Rhythm Respiratory: Yes: Regular, CTA Bilaterally Gastrointestinal: Yes: Normal Bowel Sounds, Soft Musculoskeletal: Yes: Muscle Weakness Extremities: Yes: WNL Edema: No Peripheral Pulses WNL: Yes Neurological: Yes: Alert, Oriented ...Motor Strength: LLE, RLE (strength 5/5 bilat upper ext, noted with 4/5 lower ext) Psychiatric: Yes: Alert, Oriented Labs: CBC, BMP 05/22/19 18:15 05/22/19 18:15 Imaging - Results Cat Scan: Report Reviewed (CT head: chronic b/l infract and Left occiptal cortical infarct, no acute changes noted) Problem List - Problems (1) TIA (transient ischemic attack) Code(s): G45.9 - TRANSIENT CEREBRAL ISCHEMIC ATTACK, UNSPECIFIED (2) Vertigo Code(s): R42 - DIZZINESS AND GIDDINESS (3) CAD (coronary artery disease) Code(s): I25.10 - ATHSCL HEART DISEASE OF [place] CORONARY ARTERY W/O ANG PCTRS (4) History of CVA (cerebrovascular accident) Code(s): Z86.73 - PRSNL HX OF TIA (TIA), AND CEREB INFRC W/O RESID DEFICITS (5) Hyperlipemia Code(s): E78.5 - HYPERLIPIDEMIA, UNSPECIFIED (6) Hypertension Code(s): I10 - ESSENTIAL (PRIMARY) HYPERTENSION Assessment/Plan 79 year old female with a past medical history of HTN, HLD, CAD, CVA (with left sided weakness), and epilepsy arrived to ED for evaluation of general weakness. Daughter reports at 3pm patient had sudden onset of spinning dizziness, nauseous, vomited, had slurred speech, and had generalized weakness to the point where she couldnt walk or get up from the couch. #TIA vs Vertigo vs Seizures -CT head: negative for acute finding, chronic b/l infract , left occipital cortical infarct -Continues Cardiac monitoring -Troponin negative -In ED given: IVF 1 L NS, Tegretol, gabapentin, zofran, and meclizine x1 -ED discussed with neurologist Dr doan , agrees with admission, MRI can be done with loop recorder. -Neuro consult in AM -continue with lamictal 100 Q am, 300 mg q hs -carbatrol 100 mg q am, 200 m qhs -follow up MRI in AM #Previous CVA - CT negative for acute CVA - Neuro consult - Continue ASA #Urinary frequency - Negative UA - No leukocytosis #HTN - Continue Norvasc 10 mg daily - Continue Lisinopril 20 mg daily #HLD - Continue Lipitor 40 mg qhs # Anxiety - given clonazepam x1 tonight - clonazepem 0.5 mg Q HS F/E/N -s/p Normal Saline 1L -Electrolytes wnl -Cardiac diet Prophylaxis -SCD's, heparin SQ for DVT Disposition - admit to telemetry Visit type - Emergency Visit Emergency Visit: Yes ED Registration Date: 05/22/19 Care time: The patient presented to the Emergency Department on the above date and was hospitalized for further evaluation of their emergent condition. - New Patient This patient is new to me today: Yes Date on this admission: 05/23/19 - Critical Care Critical Care patient: No
[2019-05-22] MEDS ORDERED: ACETAMINOPHEN 325 MG TABLET (FP) PO PRN (22:44)
[2019-05-23] MEDS ORDERED: clonazePAM 0.5 MG TABLET ONE (01:21)
[2019-05-23] MEDS ORDERED: carBAMazepine 200 MG TABLET ONE (01:21)
[2019-05-23] MEDS ORDERED: GABAPENTIN 100 MG CAPSULE (FP) ONE (01:21)
[2019-05-23 05:13] VITALS: BMI 22.3
[2019-05-23 07:47] LABS: BASO % 0.7 % (0-2.0); EOS % 1.8 % (0-4.5); HEMATOCRIT 34.9 % (32.4-45.2); HEMOGLOBIN 11.6 GM/dL (10.7-15.3); LYMPH % 37.6 % (8-40); MCH 28.8 pg (25.7-33.7); MCHC 33.1 g/dl (32.0-36.0); MEAN CELL VOLUME 86.9 fl (80-96); MEAN PLT VOLUME 8.1 fl (7.5-11.1); MONO % 11.7 % (3.8-10.2); NEUT % 48.2 % (42.8-82.8); PLATELET COUNT 210 K/MM3 (134-434); RBC 4.02 M/mm3 (3.60-5.2); RDW 13.3 % (11.6-15.6); WHITE BLOOD COUNT 4.6 K/mm3 (4.0-10.0)
[2019-05-23 08:05] LABS: BLOOD UREA NITROGEN 13.1 mg/dL (7-18); CALCIUM 8.7 mg/dL (8.5-10.1); CREATININE 0.5 mg/dL (0.55-1.3); POTASSIUM 3.6 mmol/L (3.5-5.1)
[2019-05-23] MEDS ORDERED: PT OWN MED DRAWER 7, Y5N ONE (09:03)
[2019-05-23] MEDS: HEPARIN NA (PORCINE) 5,000 UNITS/ML 1ML VIAL SQ SCH ×2 (09:10→22:09)
[2019-05-23] MEDS: GABAPENTIN 100 MG CAPSULE (FP) PO SCH (09:10)
[2019-05-23] MEDS: amLODIPine BESYLATE 5 MG TABLET (FP) PO SCH (09:10)
[2019-05-23] MEDS: ASPIRIN 81 MG CHEWABLE TABLETS PO SCH (09:11)
[2019-05-23] MEDS: lamoTRIgine 100 MG TABLET (FP) PO SCH ×2 (09:11→22:06)
[2019-05-23] MEDS: carBAMazepine 100 MG TAB.CHEW PO SCH (09:14)
[2019-05-23] MEDS: LISINOPRIL 5 MG TABLET (FP) PO SCH (10:00)
[2019-05-23] MEDS ORDERED: clonazePAM 0.5 MG TABLET PO SCH (10:00)
--- NOTE | 2019-05-23 10:44 | PN ---
Progress Note, Physician - Current Medication List Current Medications: Active Medications Acetaminophen (Tylenol -) 650 mg PO Q8H PRN PRN Reason: PAIN LEVEL 1-5 Amlodipine Besylate (Norvasc -) 10 mg PO DAILY [facility] Last Admin: 05/23/19 09:10 Dose: 10 mg Aspirin (Asa -) 81 mg PO DAILY [facility] Last Admin: 05/23/19 09:11 Dose: 81 mg Atorvastatin Calcium (Lipitor -) 40 mg PO HS [facility] Carbamazepine (Tegretol -) 200 mg PO HS [facility] Carbamazepine (Tegretol -) 100 mg PO DAILY [facility] Last Admin: 05/23/19 09:14 Dose: 100 mg Clonazepam (Klonopin -) 0.5 mg PO HS [facility] Gabapentin (Neurontin -) 100 mg PO DAILY [facility] Last Admin: 05/23/19 09:10 Dose: 100 mg Heparin Sodium (Porcine) (Heparin -) 5,000 unit SQ BID [facility] Last Admin: 05/23/19 09:10 Dose: 5,000 unit Sodium Chloride (Normal Saline -) 1,000 mls @ 42 mls/hr IV ASDIR [facility] Last Admin: 05/22/19 19:05 Dose: 42 mls/hr Lamotrigine (Lamictal -) 100 mg PO DAILY [facility] Last Admin: 05/23/19 09:11 Dose: 100 mg Lamotrigine (Lamictal -) 300 mg PO HS [facility] Lisinopril (Prinivil) 20 mg PO DAILY [facility] - Objective Vital Signs: Vital Signs Temperature 97.8 F 05/23/19 10:00 Pulse Rate 57 L 05/23/19 10:00 Respiratory Rate 18 05/23/19 10:00 Blood Pressure 109/60 05/23/19 10:00 O2 Sat by Pulse Oximetry (%) 99 05/23/19 04:56 Cardiovascular: Yes: S1, S2 Respiratory: Yes: Regular, CTA Bilaterally Gastrointestinal: Yes: Normal Bowel Sounds, Soft Extremities: Yes: Amputation (FINGERS) Neurological: Yes: Alert, Oriented, Weakness (IMPROVED). No: Facial Droop Labs: CBC, BMP 05/23/19 06:40 05/23/19 06:40 INR, PTT INR 0.96 (0.83-1.09) 05/22/19 18:15 Problem List - Problems (1) CVA (cerebral vascular accident) Assessment/Plan: -CT head: negative for acute finding, chronic b/l infract , left occipital cortical infarct -Continues Cardiac monitoring -Troponin negative - MRI can be done with loop recorder. -Neuro consult Code(s): I63.9 - CEREBRAL INFARCTION, UNSPECIFIED (2) Hypertension Assessment/Plan: - Continue Norvasc 10 mg daily - Continue Lisinopril 20 mg daily Code(s): I10 - ESSENTIAL (PRIMARY) HYPERTENSION (3) Seizure disorder Assessment/Plan: -continue with lamictal 100 Q am, 300 mg q hs -carbatrol 100 mg q am, 200 m qhs Code(s): G40.909 - EPILEPSY, UNSP, NOT INTRACTABLE, WITHOUT STATUS EPILEPTICUS (4) Anxiety Assessment/Plan: - given clonazepam x1 - clonazepem 0.5 mg Q HS Code(s): F41.9 - ANXIETY DISORDER, UNSPECIFIED
--- NOTE | 2019-05-23 11:32 | CON.NEURO ---
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) History of Recent Travel: No Home Medications - Allergies Allergies/Adverse Reactions: Allergies Allergy/AdvReac Type Severity Reaction Status Date / Time clopidogrel [From Plavix] Allergy Verified 05/22/19 20:42 - Home Medications Home Medications: Ambulatory Orders Lamotrigine 100 mg PO DAILY 11/16/18 Lamotrigine [Lamictal Xr] 300 mg PO HS 11/16/18 Amlodipine Besylate 10 mg PO DAILY 03/16/19 Aspirin 81 mg PO DAILY 03/16/19 Carbamazepine 200 mg PO DAILY 03/16/19 Lisinopril 20 mg PO DAILY 03/16/19 Lubiprostone [Amitiza] 8 mcg PO BID 03/16/19 Oxybutynin Chloride 5 mg PO DAILY 03/16/19 Acetaminophen [Tylenol] 325 mg PO Q8H 05/22/19 Calcium Citrate [Calcitrate] 950 mg PO DAILY 05/22/19 Cetirizine HCl [24Hour Allergy] 10 mg PO DAILY 05/22/19 Gabapentin [Neurontin -] 100 mg PO HS 05/22/19 Pravastatin Sodium [Pravachol (Nf)] 40 mg PO HS 05/22/19 clonazePAM [Klonopin -] 0.5 mg PO DAILY 05/22/19 Physical Exam-Neuro Vital Signs: Vital Signs Temperature 97.8 F 05/23/19 10:00 Pulse Rate 57 L 05/23/19 10:00 Respiratory Rate 18 05/23/19 10:00 Blood Pressure 109/60 05/23/19 10:00 O2 Sat by Pulse Oximetry (%) 98 05/23/19 09:00 Labs: CBC, BMP 05/23/19 06:40 05/23/19 06:40 INR, PTT INR 0.96 (0.83-1.09) 05/22/19 18:15 Assessment/Plan cc Severe vertigo HPI 79 year old female history of HTN,HLD,CAD,Stroke, seizure. Michael came with feeling of severe vertigo and swaying to both side. Diana felt nausea , vomiting and severe dizziness. She has ct head , did not show any acute findings. Michael is feeling better, today and she was able to go bathroom without support and asking , when she can go home. Patient denies any new focal symptoms, she feeling much better but not 100 perent. She has history of seizure and on two aed medicaiton. 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: CVA (CVA x3 (2015)), Peripheral Neuropathy, Seizure (11/2013), Vertigo Cardiovascular: Yes: CAD, HTN, Hyperlipdemia Renal/: Yes: Neurogenic Bladder (on ditropan) Psych: Yes: Anxiety Past Surgical History: Yes: Appendectomy, right hand digits amputation Social Hisotry no toxic habits, lives alone Allergies/Adverse Reactions: Allergies Allergy/AdvReac Type Severity Reaction Status Date / Time clopidogrel [From Plavix] Allergy Verified 05/22/19 20:42 Home Medications: Lamotrigine 100 mg PO DAILY 11/16/18 Lamotrigine [Lamictal Xr] 300 mg PO HS 11/16/18 Amlodipine Besylate 10 mg PO DAILY 03/16/19 Aspirin 81 mg PO DAILY 03/16/19 Carbamazepine 200 mg PO DAILY 03/16/19 Lisinopril 20 mg PO DAILY 03/16/19 Lubiprostone [Amitiza] 8 mcg PO BID 03/16/19 Oxybutynin Chloride 5 mg PO DAILY 03/16/19 Acetaminophen [Tylenol] 325 mg PO Q8H 05/22/19 Calcium Citrate [Calcitrate] 950 mg PO DAILY 05/22/19 Cetirizine HCl [24Hour Allergy] 10 mg PO DAILY 05/22/19 Gabapentin [Neurontin -] 100 mg PO HS 05/22/19 Pravastatin Sodium [Pravachol (Nf)] 40 mg PO HS 05/22/19 clonazePAM [Klonopin -] 0.5 mg PO DAILY 05/22/19 ROS,FH,SH REVIEWED in chart NEUROLOGICAL EXAMINATION Alert oriented x 3, neck is supple vss eomi, pupil is reactive , no face asymmetry moving all extremity sensation is normal ct head showed bilateral stroke and left occpital infarct Assessment/Plan 1. PI 79 year old female history of HTN,HLD,CAD,Stroke, seizure. Patient admitted for severe vertigo sensation. Unlikley to be seizure or tia. Most likley Benign positional vertigo Plan: she is much better, continue supportive care, and PT . - zofran prn - mri of brain pending after brain mri patient can be discharged - an routine eeg can be obtained, no necessary to keep in hospital Thanking you so much Vin Jo MD
[2019-05-23] MEDS ORDERED: ATORVASTATIN CA 20 MG TABLET (FP) PO SCH (22:00)
[2019-05-23] MEDS: clonazePAM 0.5 MG TABLET PO SCH (22:05)
[2019-05-23] MEDS: ATORVASTATIN CA 40 MG TABLET (FP) PO SCH (22:06)
[2019-05-23] MEDS: carBAMazepine 200 MG TABLET PO SCH (23:10)
[2019-05-24] MEDS ORDERED: PT OWN MED DRAWER 7, Y5N ONE ×3 (08:56→21:16)
[2019-05-24] MEDS: LISINOPRIL 5 MG TABLET (FP) PO SCH (09:27)
[2019-05-24] MEDS: GABAPENTIN 100 MG CAPSULE (FP) PO SCH (09:28)
[2019-05-24] MEDS: amLODIPine BESYLATE 5 MG TABLET (FP) PO SCH (09:28)
[2019-05-24] MEDS: ASPIRIN 81 MG CHEWABLE TABLETS PO SCH (09:28)
[2019-05-24] MEDS: carBAMazepine 100 MG TAB.CHEW PO SCH (09:29)
[2019-05-24] MEDS: HEPARIN NA (PORCINE) 5,000 UNITS/ML 1ML VIAL SQ SCH ×2 (09:35→22:20)
--- NOTE | 2019-05-24 09:56 | PN ---
Progress Note (short form) - Note Progress Note: 79 year old female history of HTN,HLD,CAD,Stroke, seizure. Michael came with feeling of severe vertigo and swaying to both side. Diana felt nausea , vomiting and severe dizziness. She has ct head , did not show any acute findings. Michael is feeling better, today and she was able to go bathroom without support and asking , when she can go home. Patient denies any new focal symptoms, she is feeling better, though not 100 percent back to normal. She feels mildly unsteady and able to walk to bathroom NEUROLOGICAL EXAMINATION Alert oriented x 3, neck is supple vss eomi, pupil is reactive , no face asymmetry moving all extremity sensation is normal ct head showed bilateral stroke and left occpital infarct Assessment/Plan 1. PI 79 year old female history of HTN,HLD,CAD,Stroke, seizure. Patient admitted for severe vertigo sensation. Unlikley to be seizure or tia. Most likley Benign positional vertigo Plan: she is much better, continue supportive care, and PT . - zofran prn - mri of brain pending - an routine eeg can be obtained, no necessary to keep in hospital Thanking you so much Vin Jo MD
[2019-05-24] MEDS: lamoTRIgine 100 MG TABLET (FP) PO SCH ×2 (10:00→22:17)
--- NOTE | 2019-05-24 11:49 | PN ---
Progress Note, Physician - Current Medication List Current Medications: Active Medications Acetaminophen (Tylenol -) 650 mg PO Q8H PRN PRN Reason: PAIN LEVEL 1-5 Amlodipine Besylate (Norvasc -) 10 mg PO DAILY [facility] Last Admin: 05/24/19 09:28 Dose: 10 mg Aspirin (Asa -) 81 mg PO DAILY [facility] Last Admin: 05/24/19 09:28 Dose: 81 mg Atorvastatin Calcium (Lipitor -) 40 mg PO [facility] Last Admin: 05/23/19 22:06 Dose: 40 mg Carbamazepine (Tegretol -) 200 mg PO HS [facility] Last Admin: 05/23/19 23:10 Dose: 200 mg Carbamazepine (Tegretol -) 100 mg PO DAILY [facility] Last Admin: 05/24/19 09:29 Dose: 100 mg Clonazepam (Klonopin -) 0.5 mg PO [facility] Last Admin: 05/23/19 22:05 Dose: 0.5 mg Gabapentin (Neurontin -) 100 mg PO DAILY [facility] Last Admin: 05/24/19 09:28 Dose: 100 mg Heparin Sodium (Porcine) (Heparin -) 5,000 unit SQ BID [facility] Last Admin: 05/24/19 09:35 Dose: Not Given Sodium Chloride (Normal Saline -) 1,000 mls @ 42 mls/hr IV ASDIR [facility] Last Admin: 05/22/19 19:05 Dose: 42 mls/hr Lamotrigine (Lamictal -) 100 mg PO DAILY [facility] Last Admin: 05/23/19 09:11 Dose: 100 mg Lamotrigine (Lamictal -) 300 mg PO [facility] Last Admin: 05/23/19 22:06 Dose: 300 mg Lisinopril (Prinivil) 20 mg PO DAILY [facility] Last Admin: 05/24/19 09:27 Dose: 20 mg - Objective Vital Signs: Vital Signs Temperature 98.5 F 05/24/19 05:00 Pulse Rate 57 L 05/24/19 05:00 Respiratory Rate 18 05/24/19 05:00 Blood Pressure 118/53 L 05/24/19 05:00 O2 Sat by Pulse Oximetry (%) 99 05/23/19 21:00 Cardiovascular: Yes: S1, S2 Respiratory: Yes: Regular, CTA Bilaterally Gastrointestinal: Yes: Normal Bowel Sounds, Soft Labs: CBC, BMP 05/23/19 06:40 05/23/19 06:40 INR, PTT INR 0.96 (0.83-1.09) 05/22/19 18:15 Problem List - Problems (1) CVA (cerebral vascular accident) Assessment/Plan: -CT head: negative for acute finding, chronic b/l infract , left occipital cortical infarct -Continues Cardiac monitoring -Troponin negative - MRI can be done with loop recorder. -Neuro consult Code(s): I63.9 - CEREBRAL INFARCTION, UNSPECIFIED (2) Hypertension Assessment/Plan: - Continue Norvasc 10 mg daily - Continue Lisinopril 20 mg daily Code(s): I10 - ESSENTIAL (PRIMARY) HYPERTENSION (3) Seizure disorder Assessment/Plan: -continue with lamictal 100 Q am, 300 mg q hs -carbatrol 100 mg q am, 200 m qhs Code(s): G40.909 - EPILEPSY, UNSP, NOT INTRACTABLE, WITHOUT STATUS EPILEPTICUS (4) Anxiety Assessment/Plan: - given clonazepam x1 - clonazepem 0.5 mg Q HS Code(s): F41.9 - ANXIETY DISORDER, UNSPECIFIED
[2019-05-24] MEDS ORDERED: POLYETHYLENE GLYCOL 3350 119 GM BTL PO ONE (12:23)
[2019-05-24] MEDS: carBAMazepine 200 MG TABLET PO SCH (22:17)
[2019-05-24] MEDS: ATORVASTATIN CA 40 MG TABLET (FP) PO SCH (22:17)
[2019-05-24] MEDS: clonazePAM 0.5 MG TABLET PO SCH (22:17)
[2019-05-25] MEDS ORDERED: POLYETHYLENE GLYCOL 3350 119 GM BTL PO SCH (10:00)
[2019-05-25] MEDS: amLODIPine BESYLATE 5 MG TABLET (FP) PO SCH (10:23)
[2019-05-25] MEDS: GABAPENTIN 100 MG CAPSULE (FP) PO SCH (10:23)
[2019-05-25] MEDS: LISINOPRIL 5 MG TABLET (FP) PO SCH (10:23)
[2019-05-25] MEDS: ASPIRIN 81 MG CHEWABLE TABLETS PO SCH (10:23)
[2019-05-25] MEDS: HEPARIN NA (PORCINE) 5,000 UNITS/ML 1ML VIAL SQ SCH (10:24)
--- NOTE | 2019-05-25 10:24 | PN ---
Progress Note (short form) - Note Progress Note: 79 year old female history of HTN,HLD,CAD,Stroke, seizure. Michael came with feeling of severe vertigo and swaying to both side. Patijaylen felt nausea , vomiting and severe dizziness. She has ct head , did not show any acute findings. Michael is feeling better, today and she was able to go bathroom without support and asking , when she can go home. Patient denies any new focal symptoms, she is feeling much better, and ready to go home. NEUROLOGICAL EXAMINATION Alert oriented x 3, neck is supple vss eomi, pupil is reactive , no face asymmetry moving all extremity sensation is normal ct head showed bilateral stroke and left occpital infarct Assessment/Plan 1. PI 79 year old female history of HTN,HLD,CAD,Stroke, seizure. Patient admitted for severe vertigo sensation. Unlikley to be seizure or tia. Most likley Benign positional vertigo, feeling better Plan: she is much better, continue supportive care, and PT . - zofran prn - Patient can be discharged from neurological point of view. Thanking you so much Vin Jo MD
[2019-05-25] MEDS: lamoTRIgine 100 MG TABLET (FP) PO SCH (10:25)
[2019-05-25] MEDS ORDERED: PT OWN MED DRAWER 7, Y5N ONE (10:27)
[2019-05-25] MEDS: carBAMazepine 100 MG TAB.CHEW PO SCH (10:27)
[2019-05-25 11:19] VITALS: BP 108/69; PULSE 58; TEMP 98.1
--- NOTE | 2019-05-25 11:36 | EKG ---
Test Reason : Blood Pressure : / mmHG Vent. Rate : 066 BPM Atrial Rate : 066 BPM P-R Int : 228 ms QRS Dur : 100 ms QT Int : 478 ms P-R-T Axes : 084 016 020 degrees QTc Int : 501 ms SINUS RHYTHM WITH 1ST DEGREE A-V BLOCK PROLONGED QT ABNORMAL ECG WHEN COMPARED WITH ECG OF 16-MAR-2019 13:36, IN INTERVAL HAS INCREASED T WAVE VARIATION Confirmed by MARTA HENRY, TAM ([id number]) on 05/25/2019 11:36:02 AM Referred By: Confirmed By:TAM LOZANO MD
--- NOTE | 2019-05-25 12:24 | DS ---
Physical Examination Vital Signs: Vital Signs Temperature 98.1 F 05/25/19 10:00 Pulse Rate 58 L 05/25/19 10:00 Respiratory Rate 20 05/25/19 10:00 Blood Pressure 108/69 05/25/19 10:00 O2 Sat by Pulse Oximetry (%) 100 05/25/19 09:00 Constitutional: Yes: Calm Cardiovascular: Yes: Regular Rate and Rhythm, S1, S2 Respiratory: Yes: CTA Bilaterally Gastrointestinal: Yes: Normal Bowel Sounds, Soft Edema: No Neurological: Yes: Alert, Oriented Labs: CBC, BMP 05/23/19 06:40 05/23/19 06:40 Discharge Summary Problems reviewed: Yes Reason For Visit: TRANSIENT ISCHEMIC ATTACK,VERTIGO Current Active Problems CAD (coronary artery disease) (Acute) History of CVA (cerebrovascular accident) (Acute) TIA (transient ischemic attack) (Acute) Vertigo (Acute) Other Procedures: no acute infarct Hospital Course: 79 y/o F with PMH of HTN, HLD, CAD, CVA, Seizures presenting to ED with daughter for evaluation of general weakness. The daughter reports patient ate some soup around 3 PM and suddenly felt room spinning, dizziness, nauseous, vomited, had slurred speech, and had generalized weakness to the point where she couldnt walk or get up from the couch. However daughter noted that the patients symptoms have improved since they started, now with increased urinary frequency. No recent illnesses, fevers, nausea, vomiting, headaches, weakness, numbness/tingling, abdominal pain, changes in vision. Patient has loop recorder in place. head ct done no infarct, seen by neurology Condition: Improved - Instructions Referrals: Roxanna Johansen MD [Primary Care Provider] - Disposition: VNS/HOME HEALTH CARE - Home Medications Comprehensive Discharge Medication List: Ambulatory Orders Lamotrigine 100 mg PO DAILY 11/16/18 Lamotrigine [Lamictal Xr] 300 mg PO HS 11/16/18 Amlodipine Besylate 10 mg PO DAILY 03/16/19 Aspirin 81 mg PO DAILY 03/16/19 Carbamazepine 200 mg PO DAILY 03/16/19 Lisinopril 20 mg PO DAILY 03/16/19 Lubiprostone [Amitiza] 8 mcg PO BID 03/16/19 Oxybutynin Chloride 5 mg PO DAILY 03/16/19 Acetaminophen [Tylenol] 325 mg PO Q8H 05/22/19 Calcium Citrate [Calcitrate] 950 mg PO DAILY 05/22/19 Cetirizine HCl [24Hour Allergy] 10 mg PO DAILY 05/22/19 Gabapentin [Neurontin -] 100 mg PO HS 05/22/19 Pravastatin Sodium [Pravachol (Nf)] 40 mg PO HS 05/22/19 clonazePAM [Klonopin -] 0.5 mg PO DAILY 05/22/19
== END 2019-05-25 15:25 | disposition home health service (06) | DRG 149 ==
LOC: JER 16:36 → JERBED 21:00 → J4W 05-23 04:52
PROVIDERS: ADMIT Internal Medicine; ATTEND Family Medicine
DX: H81.10 Benign paroxysmal vertigo, unspecified ear (principal); I69.354 Hemiplegia and hemiparesis following cerebral infarction affecting left non-dominant side; E78.5 Hyperlipidemia, unspecified; I25.10 Atherosclerotic heart disease of native coronary artery without angina pectoris; G40.909 Epilepsy, unspecified, not intractable, without status epilepticus; I10 Essential (primary) hypertension; N31.9 Neuromuscular dysfunction of bladder, unspecified; G62.9 Polyneuropathy, unspecified; F41.9 Anxiety disorder, unspecified; Z89.111 Acquired absence of right hand
CPT/HCPCS: 36415; 70450-TC; 70551-TC; 80048; 80053; 81003; 82465; 82550; 82553; 83718; 83721; 84478; 84484; 85025; 85610; 85730; 86850; 86900; 86901; 87086; 93005; 93010; 95816; 99283-25; J1644; J7030

== ENCOUNTER 2024-03-04 12:00 | Observation (INO) | payer OTHER ==
[2024-03-04 12:29] VITALS: RESP 18; BMI 26.2
[2024-03-04] MEDS ORDERED: LIDOCAINE 4% PATCH TP ONE (14:31)
[2024-03-04] MEDS ORDERED: ACETAMINOPHEN INJECTION 100 ML ONE (14:31)
[2024-03-04 14:37] LABS: BASO % 0.8 % (0-2.0); HEMATOCRIT 38.4 % (32.4-45.2); HEMOGLOBIN 12.4 GM/dL (10.7-15.3); LYMPH % 30.3 % (8-40); MCH 28.5 pg (25.7-33.7); MCHC 32.4 g/dl (32.0-36.0); MEAN CELL VOLUME 87.8 fl (80-96); MEAN PLT VOLUME 7.8 fl (7.5-11.1); MONO % 7.7 % (3.8-10.2); NEUT % 59.2 % (42.8-82.8); PLATELET COUNT 220 10^3/uL (134-434); RBC 4.37 M/mm3 (3.60-5.2); RDW 13.9 % (11.6-15.6); WHITE BLOOD COUNT 5.7 K/mm3 (4.0-10.0)
[2024-03-04] MEDS: ACETAMINOPHEN 1000 MG/100 ML BAG IVPB ONE (14:39)
[2024-03-04] MEDS: LIDOCAINE 4% PATCH TP ONE (14:39)
[2024-03-04 14:59] LABS: CHLORIDE 105 mmol/L (98-107); SODIUM 142 mmol/L (136-145)
[2024-03-04 15:01] LABS: CALCIUM 9.5 mg/dL (8.5-10.1)
[2024-03-04 15:03] LABS: ALBUMIN 3.6 g/dl (3.4-5.0); BLOOD UREA NITROGEN 24.1 mg/dL (7-18); CO2 30 mmol/L (21-32); GLUCOSE,RANDOM 93 mg/dL (74-106)
[2024-03-04 15:05] LABS: ANION GAP 8 mmol/L (4-13); CREATININE 0.6 mg/dL (0.55-1.3); POTASSIUM 6.3 mmol/L (3.5-5.1); SGOT/AST 44 U/L (15-37); SGPT/ALT 19 U/L (13-61)
[2024-03-04 15:08] LABS: BILIRUBIN,TOTAL 0.6 mg/dL (0.2-1); TOT PROT 7.1 g/dl (6.4-8.2)
[2024-03-04 15:09] LABS: ALK PHOS 76 U/L (45-117)
[2024-03-04 16:00] LABS: ALBUMIN 3.5 g/dl (3.4-5.0); BLOOD UREA NITROGEN 22.5 mg/dL (7-18); CALCIUM 9.4 mg/dL (8.5-10.1)
[2024-03-04 16:04] LABS: CREATININE 0.6 mg/dL (0.55-1.3)
[2024-03-04 16:06] LABS: BILIRUBIN,TOTAL 0.4 mg/dL (0.2-1); TOT PROT 6.6 g/dl (6.4-8.2)
[2024-03-04] MEDS: SODIUM CHLORIDE 1,000 ML IV STA (17:11)
[2024-03-04] MEDS ORDERED: MORPHINE SULFATE 2 MG/ML SYRINGE ONE (18:07)
[2024-03-04] MEDS: morphine SULFATE 4 MG/ML VIAL IVPUSH ONE (18:16)
[2024-03-05] MEDS: ACETAMINOPHEN 325 MG TABLET (FP) PO PRN (00:10)
[2024-03-05] MEDS: GABAPENTIN 100 MG CAPSULE PO SCH (00:10)
[2024-03-05] MEDS: ATORVASTATIN CA 40 MG TABLET (FP) PO SCH (00:10)
[2024-03-05] MEDS: LIDOCAINE PATCH REMOVAL MC ONE (00:17)
[2024-03-05] MEDS: oxyCODONE HCL 5 MG TABLET PO ONE (05:40)
[2024-03-05 09:26] LABS: BASO % 0.8 % (0-2.0); EOS % 3.2 % (0-4.5); HEMATOCRIT 38.9 % (32.4-45.2); HEMOGLOBIN 12.8 GM/dL (10.7-15.3); LYMPH % 24.2 % (8-40); MCH 28.6 pg (25.7-33.7); MEAN CELL VOLUME 86.6 fl (80-96); MONO % 8.8 % (3.8-10.2); PLATELET COUNT 229 10^3/uL (134-434); RBC 4.49 M/mm3 (3.60-5.2); RDW 14.1 % (11.6-15.6); WHITE BLOOD COUNT 4.7 K/mm3 (4.0-10.0)
[2024-03-05] MEDS: lamoTRIgine 100 MG TABLET PO SCH ×2 (09:31→23:38)
[2024-03-05] MEDS: amLODIPine BESYLATE 10 MG TABLET (FP) PO SCH (09:31)
[2024-03-05] MEDS: LIDOCAINE 4% PATCH TP SCH (09:31)
[2024-03-05] MEDS: LOSARTAN POTASSIUM 25 MG TABLET PO SCH (09:31)
[2024-03-05 09:51] LABS: BLOOD UREA NITROGEN 16.7 mg/dL (7-18)
[2024-03-05 09:56] LABS: CALCIUM 9.3 mg/dL (8.5-10.1); CREATININE 0.6 mg/dL (0.55-1.3)
[2024-03-05] MEDS: RIVAROXABAN 20 MG TABLET PO SCH (22:10)
[2024-03-05] MEDS: POLYETHYLENE GLYCOL (HEALTHYLAX) 3350 17 GM PACKET PO SCH (22:49)
[2024-03-05] MEDS: LIDOCAINE PATCH REMOVAL MC SCH (22:50)
[2024-03-05] MEDS: BRIVIACT 75 MG PO SCH (23:38)
[2024-03-05] MEDS: [UNRECOGNIZED DRUG - OTHER] PO SCH (23:38)
[2024-03-06] MEDS: CLOPIDOGREL BISULFATE 75 MG TABLET (FP) PO ONE (00:17)
[2024-03-06 07:10] VITALS: BP 144/66; PULSE 60; TEMP 97.7
[2024-03-06] MEDS ORDERED: ASPIRIN COATED 81 MG TABLET.EC PO SCH (10:00)
[2024-03-06] MEDS: CLOPIDOGREL BISULFATE 75 MG TABLET (FP) PO SCH (10:29)
[2024-03-06] MEDS: SERTRALINE HCL 25 MG TABLET (FP) PO SCH (10:29)
[2024-03-06] MEDS ORDERED: oxyCODONE HCL 5 MG TABLET PO PRN (11:01)
== END 2024-03-06 15:44 | disposition home or self-care (01) ==
LOC: JER 12:00 → JERBED 20:51 → J5S 22:43
PROVIDERS: ADMIT Internal Medicine; ATTEND Family Medicine
PROC: 3E033NZ Introduction of Analgesics, Hypnotics, Sedatives into Peripheral Vein, Percutaneous Approach (ICD-10-PCS; principal; 2024-03-04)
PROC: 3E0337Z Introduction of Electrolytic and Water Balance Substance into Peripheral Vein, Percutaneous Approach (ICD-10-PCS; 2024-03-04)
DX: M16.11 Unilateral primary osteoarthritis, right hip (principal); R26.2 Difficulty in walking, not elsewhere classified; I11.9 Hypertensive heart disease without heart failure; I25.10 Atherosclerotic heart disease of native coronary artery without angina pectoris; G40.909 Epilepsy, unspecified, not intractable, without status epilepticus; E78.5 Hyperlipidemia, unspecified; G62.9 Polyneuropathy, unspecified; Z86.73 Personal history of transient ischemic attack (TIA), and cerebral infarction without residual deficits; N31.9 Neuromuscular dysfunction of bladder, unspecified; M19.90 Unspecified osteoarthritis, unspecified site; G89.29 Other chronic pain; R42 Dizziness and giddiness; Z90.49 Acquired absence of other specified parts of digestive tract; Z89.021 Acquired absence of right finger(s)
CPT/HCPCS: 36415; 72192-TC; 80048; 80053; 85025; 96361; 96374; 96375; 97116-GP; 97161-GP; 99285-25; G0378; J0131